=== PATIENT | female | born 2000 ===

== ENCOUNTER 2021-03-14 12:50 | Outpatient (REF) | payer MEDICAID, SELFPAY ==
--- NOTE | ~2021-03-14 | US_ITS ---
EXAMINATION: US PELVIS CLINICAL INFORMATION: Excessive and frequent menstruation COMPARISON: None TECHNIQUE: Ultrasound of the pelvis is performed using both transabdominal and transvaginal transducers along with Doppler. Transvaginal imaging is performed due to inadequate visualization transabdominally. The patient couldn't tolerate transvaginal exam. FINDINGS: The uterus is anteverted and measures 6.1 x 2.7 x 3.6 cm in dimension. No focal uterine lesion is seen. Endometrial thickness is normal measuring 0.2 cm. There is a small amount of fluid in the endocervical canal. The ovaries are normal. The right ovary measures 2.4 x 1.3 x 2.2 cm and the left ovary measures 1.5 x 0.8 x 1.3 cm. There is no fluid in the pelvis. US/US pelvic and transvaginal IMPRESSION: Normal pelvic ultrasound.
== END 2021-03-14 12:51 | disposition home or self-care (01) ==
LOC: HO.US 12:50
PROVIDERS: PCP Pediatrics; Visit Provider Pediatrics
DX: N92.1 Excessive and frequent menstruation with irregular cycle (principal)
CPT/HCPCS: 76830; 76856

== ENCOUNTER 2023-01-21 21:25 | Emergency (ER) | payer MEDICAID, SELFPAY ==
--- NOTE | ~2023-01-21 | CT_ITS ---
EXAMINATION: CT ABDOMEN AND PELVIS WITH CONTRAST CLINICAL INFORMATION: Abdominal pain COMPARISON: None available. TECHNIQUE: Multidetector volumetric images were obtained from the superior aspect of the liver through the pubic symphysis following administration 85 mL of Omnipaque 350 intravenous contrast. Sagittal and coronal reformatted images were obtained on the technologist's workstation. Oral contrast: No This CT examination was performed using dose optimization techniques as appropriate, variously including the following: *Automated exposure control *Adjustment of mA and/or kV according to patient size (this includes techniques or standardized protocols for targeted exams where dose is matched to indication/reason for exam; i.e. extremities or head) *Use of iterative reconstruction technique DLP: 198 mGy-cm FINDINGS: Motion slightly limits evaluation. LUNG BASES: The visualized lung bases are unremarkable. LIVER, GALLBLADDER, AND BILIARY TREE: The liver is normal in size, shape, and attenuation. No focal hepatic lesion or biliary ductal dilatation is present. The gallbladder is unremarkable with no evidence of radiopaque gallstones, gallbladder wall thickening, or obvious pericholecystic inflammatory changes. PANCREAS: Unremarkable. SPLEEN: Unremarkable. ADRENAL GLANDS: Unremarkable. KIDNEYS AND URETERS: The kidneys are normal in size, shape, and attenuation. No hydronephrosis, hydroureter, or calculi seen. No perinephric stranding. BLADDER: Unremarkable. GASTROINTESTINAL TRACT: The appendix is not confidently seen. There is retained rectal stool with mild rectal distention up to 4.3 cm. ABDOMINAL WALL: No significant hernia is appreciated. LYMPH NODES: Normal. VASCULAR: Unremarkable. PELVIC VISCERA: Unremarkable. OSSEOUS STRUCTURES: Unremarkable. CT/CT abdomen pelvis w IV con IMPRESSION: Motion slightly limits evaluation. Retained rectal stool with mild rectal expansion. No other significant abnormality seen. Fleischner guidelines were followed.
[2023-01-21 21:28] VITALS: BP 121/70; PULSE 105; RESP 18; TEMP 36.7; O2SAT 98; BMI 17.3
[2023-01-21 21:41] LABS: MANUAL DIFF FLAG NO
[2023-01-21 21:43] LABS: Basophils Percent Auto 0.3 % (0-2); Hemoglobin 14.6 g/dl (12.0-16.0); Imm Gran Abs Auto 0.02 X10*3/uL (0.00-0.03); Imm Gran Pct Auto 0.2 % (0.0-0.4); Lymphocytes Absolute Auto 1.1 X10*3/uL (1.2-4.9); Lymphocytes Percent Auto 10.9 % (20-40); Mean Corpuscular Hemoglobin 28.2 pg (27.0-33.0); Mean Corpuscular Volume 83.2 fL (80.0-98.0); Monocytes Absolute Auto 0.4 X10*3/uL (0.1-1.2); Monocytes Percent Auto 3.8 % (2-11); Neutrophils Absolute Auto 8.3 x10*3/uL (2.0-8.3); Neutrophils Percent Auto 84.8 % (45-73); Platelet Count 251 X10*3/uL (160-400); Red Blood Count 5.17 X10*6/uL (4.20-5.50); White Blood Count 9.8 X10*3/uL (4.8-10.8)
[2023-01-21 21:56] LABS: Alanine Aminotransferase 9 U/L (0-31); Albumin Level 4.7 g/dL (3.5-5.0); Alkaline Phosphatase 58 U/L (39-117); Anion Gap 17 (12-20); Aspartate Amino Transferase 14 U/L (5-31); Blood Urea Nitrogen 10 mg/dL (9-16); Calcium 10.3 mg/dL (8.4-10.2); Carbon Dioxide 21 mmol/L (22-29); Chloride 108 mmol/L (96-108); Creatinine Clr Calc Pharmacy 71.1; Estimated Glomerular Filt Rate > 60; Glucose Random 115 mg/dL (60-115); Potassium 3.8 mmol/L (3.3-5.1); Sodium 142 mmol/L (135-145); Total Protein 8.1 g/dL (6.5-8.0)
[2023-01-21 23:18] VITALS: BP 97/61; PULSE 88; RESP 18; TEMP 37; O2SAT 98
--- NOTE | 2023-01-21 23:32 | ED.NAVMDI ---
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 The patient then developed upper abdominal pain after vomiting so much. No diarrhea, fevers, no sick contacts, food exposures. This is unusual for her. Denies urinary symptoms MD elicited complaint: nausea, vomiting and abdominal pain Onset (ago): hour(s) (since last night) Description of vomiting: food contents and watery Associated nausea: Yes Location of pain: epigastric Pain consistency: intermittent Severity: mild Quality: cramping and aching Exacerbating factors: eating Relieving factors: none Associated symptoms: loss of appetite, malaise and nausea/vomiting Treatment prior to arrival: other OTC medicine Related Data Previous Rx's Medication Instructions Recorded bisacodyl 10 mg rectal suppository 10 mg OR DAILY PRN constipation 01/22/23 #12 ea ondansetron 4 mg disintegrating 4 mg PO Q8H PRN nausea and 01/22/23 tablet vomiting #20 tabs sennosides 8.6 mg tablet (senna) 8.6 mg PO BEDTIME PRN constipation 01/22/23 #30 tabs Allergies Allergy/AdvReac Type Severity Reaction Status Date / Time No Known Allergies Allergy Unverified 01/27/20 19:17 [No Known Allergies*] Review of Systems Review of Systems: Constitutional : No Weight loss, No Fever, No Chills ENT/Mouth : No sore throat, No Rhinorrhea Eyes: No Swelling, No Redness Cardiovascular : No Chest Pain, No SOB, NoEdema Respiratory : No Cough, No Sputum, No Wheezing Gastrointestinal : Positive Nausea, Positive Vomiting, no Diarrhea, positive abdominal Pain, No Hematochezia, No Melena Genitourinary : No Dysuria, No Urinary Frequency, No Hematuria, No Urgency Musculoskeletal : No joint pain, No Myalgias, No Joint Swelling Skin : No Skin Lesions, No rash Neuro : No Weakness, No Numbness, No Dizziness, No Headache Psych : No Anxiety/Panic, No Depression Heme/Lymph: No Bruising, No Lymphadenopathy Endocrine : No Polyuria, No Polydipsia All other systems reviewed and are negative. Gastrointestinal: Gastrointestinal: Reports nausea PMFSH Past Medical History Attestation statement: The following information was validated with the patient. Source: obtained from family Medical History Cerebellar ataxia Social History Social History (Updated 01/21/23 @ 23:36 by Sadaf Marc DO) Alcohol intake: never Patient Tobacco Use Status: Never used Tobacco Smoked in Last 30 Days: No Use of substances other than those prescribed or required for medical reasons: No Advance Directives: No Advance Directives Information Provided: Yes Patient : No Physical Exam Vital Signs: Vital Signs: Last Vital Signs Temp 98.6 F 01/21/23 23:18 Pulse 88 01/21/23 23:18 Resp 18 01/21/23 23:18 BP 97/61 01/21/23 23:18 Pulse Ox 98 01/21/23 23:18 O2 Del Method Room Air 01/21/23 23:18 BMI result Body Mass Index 17.3 Appearance: Alert. Oriented X3. No acute distress. Eyes: Pupils equal, round and reactive to light. ENT: Pharynx midly dry MM Neck: Normal inspection. Neck supple. CVS: Normal heart rate and rhythm. Pulses normal. Respiratory: No respiratory distress. Breath sounds normal. Abdomen: Soft and mild epigastric ttp no rebound or guarding Skin: Skin warm and dry. Normal skin color. Normal skin turgor. Extremities: No lower extremity edema. No calf ttp Neuro: Oriented X 3. at baseline. Rolling movements of head WC bound Course Course Course Narrative: repeat IVF still having pain will obtain CT scan Reevaluation(s) Reevaluation #1: does not want disimpaction - wants to go home with enema and suppositories Medications Administered Discontinued Medications Generic Name Dose Route Start Last Admin Trade Name Freq PRN Reason Stop Dose Admin Acetaminophen 325 mg 01/22/23 01:39 01/22/23 01:49 Acetaminophen Oral Liquid 650 Mg/20.3 Ml Solution PO 01/22/23 01:40 325 mg ONCE ONE Administration Famotidine 20 mg 01/21/23 23:27 01/21/23 23:39 Famotidine/Pf 20 Mg/2 Ml Vial IVPUSH 01/21/23 23:28 20 mg ONCE ONE Administration Sodium Chloride 1,000 mls @ 999 mls/hr 01/21/23 23:30 01/22/23 00:43 Ns IV 01/22/23 00:30 Infused .Q1H1M MICHA Infusion Sodium Chloride 500 mls @ 500 mls/hr 01/22/23 01:45 01/22/23 01:51 Ns IV 01/22/23 02:44 500 mls/hr .Q1H MICHA Administration Iohexol 85 ml 01/22/23 02:25 01/22/23 02:26 Iohexol 350 Mg/Ml 100 Ml Infus..Btl IV 01/22/23 02:26 85 ml ONCE ONE Administration Ketorolac Tromethamine 15 mg 01/21/23 23:27 01/21/23 23:38 Ketorolac Tromethamine 15 Mg/Ml Vial IVPUSH 01/21/23 23:28 15 mg ONCE ONE Administration Ondansetron HCl 4 mg 01/21/23 23:27 01/21/23 23:38 Ondansetron Hcl 4 Mg/2 Ml Vial IVPUSH 01/21/23 23:28 4 mg ONCE ONE Administration Medical Decision Making Medical Decision Making MDM Narrative: 22 yo female with hx of cerebellar ataxia uses walker and WC no prior abdominal surgery here with c/o n/v starting last night then developing upper abdominal pain - no risk factors or exposures no other symptoms. Had negative COVID test at home. At this time will obtain basic labs, UA/UPT and IVF supportive medications. She has no localizing pain in RUQ or RLQ to suggest cholecystitis or appendicitis. Differential Diagnosis Differential Diagnoses: The differential diagnosis associated with the presentation includes gastritis, viral syndrome, UTI, food toxicity Admission/Observation Consideration of admission/observation: Escalation of care including admission/observation considered feels better tolerating PO stable for DC Lab Data [facility] Lab Attestation statement: I reviewed the patient's lab results. 01/21/23 21:37 01/21/23 21:37 Labs: Lab Results 01/21/23 01/21/23 01/22/23 Range/Units 21:37 23:53 01:24 WBC 9.8 (4.8-10.8) X10*3/uL RBC 5.17 (4.20-5.50) X10*6/uL Hgb 14.6 (12.0-16.0) g/dl Hct 43.0 (37.0-47.0) % MCV 83.2 (80.0-98.0) fL MCH 28.2 (27.0-33.0) pg MCHC 34.0 (31.0-35.0) g/dl RDW 12.0 (11.0-16.0) % Plt Count 251 (160-400) X10*3/uL MPV 11.0 (9.4-12.3) fL Immature Gran % (Auto) 0.2 (0.0-0.4) % Neut % (Auto) 84.8 H (45-73) % Lymph % (Auto) 10.9 L (20-40) % [place] % (Auto) 3.8 (2-11) % Eos % (Auto) 0.0 (0-4) % Baso % (Auto) 0.3 (0-2) % Lymph # (Auto) 1.1 L (1.2-4.9) X10*3/uL [place] # (Auto) 0.4 (0.1-1.2) X10*3/uL Eos # (Auto) 0.0 (0.0-0.4) X10*3/uL Baso # (Auto) 0.0 (0.0-0.2) X10*3/uL Abs Immat Gran (auto) 0.02 (0.00-0.03) X10*3/uL Absolute Neuts (auto) 8.3 (2.0-8.3) x10*3/uL Absolute Nucleated RBC 0.000 (0.0-0.012) X10*3/uL Nucleated RBC % (auto) 0.0 (0.0-0.2) /100WBC Sodium 142 (135-145) mmol/L Potassium 3.8 (3.3-5.1) mmol/L Chloride 108 (96-108) mmol/L Carbon Dioxide 21 L (22-29) mmol/L Anion Gap 17 (12-20) BUN 10 (9-16) mg/dL Creatinine 0.71 (0.5-1.4) mg/dL Estim Creat Clear Calc 71.1 Estimated GFR > 60 Random Glucose 115 (60-115) mg/dL Calcium 10.3 H (8.4-10.2) mg/dL Total Bilirubin 1.0 (0.0-1.0) mg/dL AST 14 (5-31) U/L ALT 9 (0-31) U/L Alkaline Phosphatase 58 (39-117) U/L Total Protein 8.1 H (6.5-8.0) g/dL Albumin 4.7 (3.5-5.0) g/dL Lipase 22 (8-78) U/L Urine Color Dark Yellow Urine Appearance Clear Urine pH 5.5 (5.0-9.0) Ur Specific [place] >= 1.030 H (1.005-1.025) Urine Protein 30 (1+) H (Neg-Trace) mg/dL Urine Glucose (UA) Negative (Negative) mg/dL Urine Ketones 80 (Negative) mg/dL Urine Blood Negative (Negative) Urine Nitrite Negative (Negative) Ur Leukocyte Esterase Trace H (Negative) Urine RBC 3-5 H (0-2) /HPF Urine WBC 6-10 H (0-5) /HPF Ur Squamous Epith Cells 6-10 (0-2) /HPF Urine Bacteria Trace (None Seen) Hyaline Casts 0-2 (0-2) /LPF Urine Test NEGATIVE (NEGATIVE) COVID-19 (CROW) Negative (Negative) COVID-19 Clin Com See Note Independent Interpretation I performed an independent interpretation of an: CT Scan (no appendicitis) Radiology Impression Discussion of test interpretation with radiology: I have reviewed the radiologist's reading. Independent Historian Clinical information obtained from an independent historian. History obtained from or confirmed by: Parent Tests considered The following testing was considered but not selected: CT scan but no localized pain to suggest appendicitis/cholecystitis Prescription Management I considered prescription management with: Other (zofran) Discharge Plan Discharge Clinical Impression: Dehydration Abdominal pain Qualifiers: Abdominal location: epigastric Qualified Code(s): R10.13 - Epigastric pain Patient Disposition: Home, Self-Care Instructions: Dehydration (ED), Acute Nausea and Vomiting (ED), Abdominal Pain (ED) Additional Instructions: return for fevers, vomiting, worsening pain, inability to eat or drink, no bowel movement in 24 hours or any other concerns. Regrese si tiene fiebre, v?mitos, dolor que empeora, incapacidad para comer o beber, falta de evacuaci?n intestinal en 24 horas o cualquier otra inquietud. Prescriptions: New bisacodyl 10 mg suppository 10 mg OR DAILY PRN (Reason: constipation) Qty: 12 0RF ondansetron 4 mg tablet,disintegrating 4 mg PO Q8H PRN (Reason: nausea and vomiting) Qty: 20 0RF sennosides [senna] 8.6 mg tablet 8.6 mg PO BEDTIME PRN (Reason: constipation) Qty: 30 0RF
[2023-01-21] MEDS: Ketorolac Tromethamine 15 MG/ML VIAL IVPUSH (23:38)
[2023-01-21] MEDS: 0.9 % Sodium Chloride 1,000 ML 999 ML IV (23:38)
[2023-01-21] MEDS: ondansetron HCL 4 MG/2 ML VIAL IVPUSH (23:38)
[2023-01-21] MEDS: Famotidine/PF 20 MG/2 ML VIAL IVPUSH (23:39)
[2023-01-21 23:40] LABS: Lipase 22 U/L (8-78)
[2023-01-22 00:14] LABS: COVID-19 Test Negative (Negative); IDNOW Serial# 08D9AD1C
--- NOTE | 2023-01-22 00:17 | PC.NURSE ---
Pt ambulated to bathroom with two assist. She was unable to void at this time, UA sample is delayed.
[2023-01-22 01:31] LABS: Appearance Urine Clear; Color Urine Dark Yellow; Glucose Urine UA Negative (Negative); Leukocyte Esterase Urine Trace (Negative); Nitrite Urine Negative (Negative); PH 5.5 (5.0-9.0); Specific Gravity - Urine >= 1.030 (1.005-1.025); UMIC TRIGGER UACC YES; Urine Blood Negative (Negative); Urine Ketones 80 mg/dL (Negative); Urine Protein 30 (1+) mg/dL (Neg-Trace)
[2023-01-22 01:34] LABS: UPreg QC Valid YES; Urine Pregnancy NEGATIVE (NEGATIVE)
[2023-01-22 01:47] LABS: Bacteria Urine Trace (None Seen); Hyaline Casts Urine 0-2 /LPF (0-2); UACC Culture Trigger YES
[2023-01-22] MEDS: Acetaminophen Oral Liquid 650 MG/20.3 ML SOLUTION 325 MG PO (01:49)
[2023-01-22] MEDS: 0.9 % Sodium Chloride 500 ML IV (01:51)
[2023-01-22] MEDS: iohexoL 350 MG/ML 100 ML INFUS..BTL 85 ML IV (02:26)
== END 2023-01-22 04:29 | disposition home or self-care (01) ==
PROVIDERS: Emergency Provider Emergency Medicine; PCP Internal Medicine
DX: E86.0 Dehydration (principal); R10.13 Epigastric pain; R11.2 Nausea with vomiting, unspecified; R19.7 Diarrhea, unspecified; Z20.822 Contact with and (suspected) exposure to COVID-19; Z20.828 Contact with and (suspected) exposure to other viral communicable diseases; Z79.899 Other long term (current) drug therapy
CPT/HCPCS: 36415; 74177; 80053; 81001; 81025; 83690; 85025; 87086; 87635; 96361; 96374; 96375; 99285; J1885; J2405; Q9967

== ENCOUNTER 2023-02-23 11:00 | Outpatient (REF) | payer MEDICAID, SELFPAY | END 2023-02-23 11:01 | disposition home or self-care (01) | LOC: HO.HHCLNP 11:00 | PROVIDERS: Visit Provider Internal Medicine | DX: R10.13 Epigastric pain (principal) | CPT/HCPCS: 87338 ==

== ENCOUNTER 2023-02-25 10:38 | Outpatient (REF) | payer MEDICAID, SELFPAY | END 2023-02-25 10:39 | disposition home or self-care (01) | LOC: HO.HHCLNP 10:38 | PROVIDERS: Visit Provider Internal Medicine | DX: Z13.89 Encounter for screening for other disorder (principal) ==

== ENCOUNTER 2023-02-28 13:31 | Outpatient (REF) | payer MEDICAID, SELFPAY ==
[2023-02-28 16:54] LABS: HCG Quantitative < 2 mIU/mL
== END 2023-02-28 13:32 | disposition home or self-care (01) ==
LOC: HO.HHCL 13:31
PROVIDERS: Visit Provider Internal Medicine
DX: Z30.42 Encounter for surveillance of injectable contraceptive (principal)
CPT/HCPCS: 36415; 84702

== ENCOUNTER 2023-03-12 12:25 | Outpatient (REF) | payer MEDICAID, SELFPAY ==
[2023-03-12 13:24] LABS: HCG Quantitative < 2 mIU/mL
== END 2023-03-12 12:26 | disposition home or self-care (01) ==
LOC: HO.LAB 12:25
PROVIDERS: PCP Internal Medicine; Visit Provider Internal Medicine
DX: Z30.42 Encounter for surveillance of injectable contraceptive (principal)
CPT/HCPCS: 36415; 84702

== ENCOUNTER 2023-05-13 15:02 | Outpatient (REF) | payer MEDICAID, SELFPAY | END 2023-05-13 15:03 | disposition home or self-care (01) | LOC: HO.LNP 15:02 | PROVIDERS: PCP Internal Medicine; Visit Provider Nurse Practitioner Family | DX: R10.13 Epigastric pain (principal); K21.9 Gastro-esophageal reflux disease without esophagitis; K58.2 Mixed irritable bowel syndrome; R10.32 Left lower quadrant pain; R14.0 Abdominal distension (gaseous); Z11.0 Encounter for screening for intestinal infectious diseases | CPT/HCPCS: 83013; 99212 ==

== ENCOUNTER 2023-05-13 15:02 | Outpatient (AMB) | payer MEDICAID, SELFPAY ==
--- NOTE | 2023-05-13 15:03 | A.OFFVIS_ITS ---
Intake Vital Signs 05/13/23 15:08 Height 4 ft 9 in Weight 90 lb BMI 19.5 BP 102/59 L Blood Pressure Location Lt brachial Position Sitting Pulse 85 Intake Visit Reasons: Epigastric pain and vomiting Intake Note: Kelsi presents in the office as a new patient for epigastric pains and vomiting. CC: She states that her stomach has been sick. They thought it was a virus but it lasted for weeks. She gets that sometimes she has constipation and a little diarrhea. Computer Artist Required: No Allergies Seasonal Allergies Allergy (Mild, Verified 05/13/23 15:08) Unknown HPI Epigastric pain and vomiting HPI Details 23-year-old female with past medical his tory of cerebellar ataxia is here accompanied by her mother. Patient was seen in the ER back in January for epigastric discomfort, nausea and abdominal pain. Patient had CT scan that was essentially negative. Patient had no leukocytosis, chemistry was also normal. Patient developed symptoms after drinking cereal with milk. Patient reports that she gets postprandial loose stools and then have constipation for few days. Patient denies any melena, hematochezia, unintentional weight loss or ribbon like stools. Patient reports dyspepsia without dysphagia or odynophagia. Patient reports that occasionally she will wake up feeling nauseous. Sometimes epigastric pain randomly. PCP send patient for stool for H pylori that was negative. We will repeat breath test today. Patient has been on baclofen which possibly have affect on her being more constipated. Patient took Senokot for few days then was given script for Dulcolax tablets. Patient believes that it was not really helpful. [facility] Medical History Cerebellar ataxia Social History Alcohol intake: never Patient Tobacco Use Status: Never used Tobacco Review of Systems Const Reports weight loss ENT Reports no additional complaints, Denies dysphagia and Denies odynophagia Card Reports no additional complaints Resp Reports no additional complaints GI Reports abdominal pain (LLQ), Denies belching, Denies melena, Reports bloating, Reports constipation, Denies dysphagia, Denies excessive flatus, Reports dyspepsia, Reports heartburn, Denies diarrhea, Reports loose stools, Reports nausea, Denies odynophagia and Denies vomiting Reports no additional complaints Musc Reports no additional complaints Neuro Reports no additional complaints Psych Reports no additional complaints Endo Reports no additional complaints Physical Exam Vital Signs: Last Vital Signs Pulse 85 05/13/23 15:08 BP 102/59 L 05/13/23 15:08 BMI result Body Mass Index 19.5 Const General: healthy appearing, no acute distress and well developed Nutritional Appearance: well nourished Orientation/consciousness: patient oriented x3 Resp Effort & Inspection: normal respiratory effort, able to speak in complete sentences, no tracheal deviation and symmetric chest movement Auscultation: clear to auscultation bilaterally Cardio Rate: regular rate GI Inspection: Yes normal to inspection and No distended Palpation (GI): Soft to palpation, not firm, nontender and No hepatosplenomegaly present Auscultation: normal bowel sounds General: Yes no CVA tenderness Back/Spine/Pelvis Back: no CVA tenderness Skin General skin exam: elasticity normal, turgor normal and dry skin Neuro Other: Mild tremors due to cerebellar ataxia General: patient oriented x3 Psych Appearance: grossly normal Mental Status: mental status grossly normal Results Reviewed Results Reviewed: CT SCAN OF ABDOMEN AND PELVIS 01/2023 (ED VISIT) FINDINGS: Motion slightly limits evaluation. LUNG BASES: The visualized lung bases are unremarkable. LIVER, GALLBLADDER, AND BILIARY TREE: The liver is normal in size, shape, and attenuation. No focal hepatic lesion or biliary ductal dilatation is present. The gallbladder is unremarkable with no evidence of radiopaque gallstones, gallbladder wall thickening, or obvious pericholecystic inflammatory changes. PANCREAS: Unremarkable. SPLEEN: Unremarkable. ADRENAL GLANDS: Unremarkable. KIDNEYS AND URETERS: The kidneys are normal in size, shape, and attenuation. No hydronephrosis, hydroureter, or calculi seen. No perinephric stranding. BLADDER: Unremarkable. GASTROINTESTINAL TRACT: The appendix is not confidently seen. There is retained rectal stool with mild rectal distention up to 4.3 cm. ABDOMINAL WALL: No significant hernia is appreciated. LYMPH NODES: Normal. VASCULAR: Unremarkable. PELVIC VISCERA: Unremarkable. OSSEOUS STRUCTURES: Unremarkable. CT/CT abdomen pelvis w IV con IMPRESSION: Motion slightly limits evaluation. Retained rectal stool with mild rectal expansion. Assessment & Plan Assessment & Plan (1) GERD (gastroesophageal reflux disease): Code(s): K21.9 - Gastro-esophageal reflux disease without esophagitis Qualifiers: Esophagitis presence: esophagitis presence not specified Qualified Code(s): K21.9 - Gastro-esophageal reflux disease without esophagitis (2) IBS (irritable bowel syndrome): Code(s): K58.9 - Irritable bowel syndrome without diarrhea Qualifiers: Irritable bowel syndrome type: with both diarrhea and constipation Qualified Code(s): K58.2 - Mixed irritable bowel syndrome (3) LLQ abdominal pain: Code(s): R10.32 - Left lower quadrant pain (4) Postprandial abdominal bloating: Code(s): R14.0 - Abdominal distension (gaseous) (5) Postprandial epigastric pain: Code(s): R10.13 - Epigastric pain Plan Patient will start taking MiraLax daily. Discussed with patient avoiding dietary triggers. Patient will increase fluid intake and activity to promote better bowel motility. Patient can take famotidine twice a day for now. Will check in the office for H pylori and treat empirically if positive. Patient will return to the office in 5 weeks, sooner on as needed basis. Patient is agreeable to this plan and verbalizes understanding of instructions. She was given the opportunity to ask questions and all questions answered. Thank you for allowing me to participate in her care Orders: Orders H Pylori Breath Test 05/15/23 Medications: New polyethylene glycol 3350 (Miralax) 17 grams PO DAILY 510 grams 2RF Discontinued sennosides Discontinued Reason: Patient no longer taking 8.6 mg PO BEDTIME PRN 30 tabs 0RF constipation bisacodyl Discontinued Reason: Patient Completed Course [address] DAILY PRN 12 ea 0RF constipation ondansetron Discontinued Reason: Patient Completed Course 4 mg PO Q8H PRN 20 tabs 0RF nausea and vomiting Coding Level of Care Code New Pt Level 4 (97889) Diagnoses Gastroesophageal reflux disease, unspecified whether esophagitis present K21.9 Esophagitis presence: esophagitis presence not specified Irritable bowel syndrome with both constipation and diarrhea K58.2 Irritable bowel syndrome type: with both diarrhea and constipation LLQ abdominal pain R10.32 Postprandial abdominal bloating R14.0 Postprandial epigastric pain R10.13 Time Spent (min) 45 Comment 30 minutes spent with patient and additional 15 minutes spent reviewing her records
[2023-05-13 15:08] VITALS: BP 102/59; PULSE 85; BMI 19.5
== END 2023-05-13 16:09 | disposition home or self-care (01) ==
PROVIDERS: PCP Internal Medicine; Visit Provider Nurse Practitioner Family
DX: K21.9 Gastro-esophageal reflux disease without esophagitis (principal); K58.2 Mixed irritable bowel syndrome; R10.32 Left lower quadrant pain; R14.0 Abdominal distension (gaseous); R10.13 Epigastric pain
CPT/HCPCS: 99204

== ENCOUNTER 2023-06-03 09:14 | Outpatient (REF) | payer MEDICAID, SELFPAY ==
[2023-06-04 21:23] LABS: HCG Tumor Marker <5 mIU/mL
== END 2023-06-03 09:15 | disposition home or self-care (01) ==
LOC: HO.LAB 09:14
PROVIDERS: PCP Internal Medicine; Visit Provider Internal Medicine
DX: Z30.42 Encounter for surveillance of injectable contraceptive (principal)
CPT/HCPCS: 36415; 84702

== ENCOUNTER 2023-06-17 15:18 | Outpatient (AMB) | payer MEDICAID, SELFPAY ==
[2023-06-17 15:32] VITALS: BP 122/62; PULSE 87; BMI 19.3
--- NOTE | 2023-06-17 15:32 | MHC.OFFVIS ---
Intake Vital Signs 06/17/23 15:32 Height 4 ft 9 in Weight 89 lb 1.068 oz BMI 19.3 BP 122/62 Blood Pressure Location Rt brachial Position Sitting Pulse 87 Intake Visit Reasons: 5 week follow up Intake Note: Kelsi presents in the office in follow up of epigastric pains and vomiting. CC: She reports that she has been taking the Miralax and it has been helping. Denies other GI symptoms. Radiological Technician Required: No Accompanied by: Aunt Allergies Seasonal Allergies Allergy (Mild, Verified 06/17/23 15:40) Unknown No Known Drug Allergies Allergy (Unknown, Verified 06/17/23 15:40) none HPI 5 week follow up HPI Details LASTY VISIT: GERD (gastroesophageal reflux disease) IBS (irritable bowel syndrome) LLQ abdominal pain Postprandial abdominal bloating Postprandial epigastric pain Plan Patient will start taking MiraLax daily. Discussed with patient avoiding dietary triggers. Patient will increase fluid intake and activity to promote better bowel motility. Patient can take famotidine twice a day for now. Will check in the office for H pylori and treat empirically if positive. Patient will return to the office in 5 weeks, sooner on as needed basis. Patient is agreeable to this plan and verbalizes understanding of instructions. She was given the opportunity to ask questions and all questions answered. ? Thank you for allowing me to participate in her care Orders Orders H Pylori Breath Test 05/15/23 Medications New polyethylene glycol 3350 (Miralax) 17 grams PO DAILY 510 grams 2RF Discontinued sennosides Discontinued Reason: Patient no longer taking 8.6 mg PO BEDTIME PRN 30 tabs 0RF constipation bisacodyl Discontinued Reason: Patient Completed Course 10 mg ND DAILY PRN 12 ea 0RF constipation ondansetron Discontinued Reason: Patient Completed Course 4 mg PO Q8H PRN 20 tabs 0RF nausea and vomiting TODAY'S VISIT Patient is here today for follow-up. Patient is accompanied by her on. Patient reports that she has been feeling much better. Changed her diet, avoiding lactose and some of the gluten. Patient is drinking more fluids and eating more vegetables. Following low FODMAP diet as much as possible. She is using the MiraLax and states that her symptoms of abdominal bloating and constipation got much better. Patient is no longer nauseous. Not taking famotidine. No epigastric discomfort, no dyspepsia, dysphagia or odynophagia. [facility] Medical History Cerebellar ataxia Social History (Updated 06/17/23 @ 15:40 by KASHIF Gonzalez) Alcohol intake: never Patient Tobacco Use Status: Never used Tobacco Review of Systems Const Denies weight gain and Denies weight loss ENT Reports no additional complaints, Denies dysphagia and Denies odynophagia Card Reports no additional complaints Resp Reports no additional complaints GI Denies abdominal pain, Denies belching, Denies melena, Denies bloating, Denies change in bowel habits, Denies dysphagia, Denies excessive flatus, Denies dyspepsia, Denies heartburn, Denies diarrhea, Denies loose stools, Denies nausea, Denies odynophagia and Denies vomiting Musc Reports no additional complaints Neuro Reports no additional complaints Psych Reports no additional complaints Endo Reports no additional complaints Physical Exam Vital Signs: Last Vital Signs Pulse 87 06/17/23 15:32 BP 122/62 06/17/23 15:32 BMI result Body Mass Index 19.3 Const General: healthy appearing, no acute distress and well developed Nutritional Appearance: well nourished Orientation/consciousness: patient oriented x3 Resp Effort & Inspection: normal respiratory effort, able to speak in complete sentences, no tracheal deviation and symmetric chest movement Auscultation: clear to auscultation bilaterally Cardio Rate: regular rate GI Inspection: Yes normal to inspection and No distended Palpation (GI): Soft to palpation, not firm, nontender and No hepatosplenomegaly present Auscultation: normal bowel sounds General: Yes no CVA tenderness Back/Spine/Pelvis Back: no CVA tenderness Skin General skin exam: elasticity normal, turgor normal and dry skin Neuro Other: Mild tremors due to cerebellar ataxia General: patient oriented x3 Psych Appearance: grossly normal Mental Status: mental status grossly normal Assessment & Plan Assessment & Plan (1) GERD (gastroesophageal reflux disease): Code(s): K21.9 - Gastro-esophageal reflux disease without esophagitis Qualifiers: Esophagitis presence: esophagitis presence not specified Qualified Code(s): K21.9 - Gastro-esophageal reflux disease without esophagitis (2) IBS (irritable bowel syndrome): Code(s): K58.9 - Irritable bowel syndrome without diarrhea Qualifiers: Irritable bowel syndrome type: without diarrhea Qualified Code(s): K58.9 - Irritable bowel syndrome without diarrhea (3) Postprandial epigastric pain: Code(s): R10.13 - Epigastric pain Plan Patient will continue taking MiraLax. Patient is not taking any PPI or H2 colin at this time. Reports to have no epigastric pain, dyspepsia. Patient will return in the office in 6 months, sooner on as needed basis. Patient is agreeable to this plan and verbalizes understanding of instructions. She was given the opportunity to ask questions and all questions answered. Thank you for allowing me to participate in her care Medications: Refilled polyethylene glycol 3350 (Miralax) 17 grams PO DAILY 510 grams 2RF Coding Level of Care Code Est Pt Level 3 (83516) Diagnoses Gastroesophageal reflux disease, unspecified whether esophagitis present K21.9 Esophagitis presence: esophagitis presence not specified Irritable bowel syndrome without diarrhea K58.9 Irritable bowel syndrome type: without diarrhea Postprandial epigastric pain R10.13 Time Spent (min) 25 Comment 15 minutes spent with patient and additional 10 minutes spent reviewing her records
== END 2023-06-17 15:52 | disposition home or self-care (01) ==
PROVIDERS: PCP Internal Medicine; Visit Provider Nurse Practitioner Family
DX: K21.9 Gastro-esophageal reflux disease without esophagitis (principal); K58.9 Irritable bowel syndrome, unspecified; R10.13 Epigastric pain
CPT/HCPCS: 99213

== ENCOUNTER → 2023-06-17 15:18 | Outpatient (BNVA) | payer MEDICAID, SELFPAY | PROVIDERS: PCP Internal Medicine; Visit Provider Nurse Practitioner Family | DX: K21.9 Gastro-esophageal reflux disease without esophagitis (principal); K58.9 Irritable bowel syndrome, unspecified; R10.13 Epigastric pain | CPT/HCPCS: 99212 ==

== ENCOUNTER 2023-07-29 14:00 | Outpatient (RCR) | payer MEDICAID, SELFPAY | END 2023-09-29 07:38 | disposition home or self-care (01) | LOC: HO.PT 14:00 | PROVIDERS: PCP Internal Medicine; Visit Provider Psychiatry & Neurology Neurology | DX: G24.1 Genetic torsion dystonia (principal) | CPT/HCPCS: 97110; 97140; 97162; 97535 ==

== ENCOUNTER 2023-08-20 10:27 | Outpatient (REF) | payer MEDICAID, SELFPAY ==
[2023-08-21 07:28] LABS: HCG Tumor Marker <5 mIU/mL
== END 2023-08-20 10:28 | disposition home or self-care (01) ==
LOC: HO.LAB 10:27
PROVIDERS: PCP Internal Medicine; Visit Provider Internal Medicine
DX: Z30.42 Encounter for surveillance of injectable contraceptive (principal)
CPT/HCPCS: 36415; 84702

== ENCOUNTER 2023-08-26 13:59 | Outpatient (REF) | payer MEDICAID, SELFPAY ==
[2023-08-26 16:24] LABS: HCG Quantitative < 2 mIU/mL
== END 2023-08-26 14:00 | disposition home or self-care (01) ==
LOC: HO.LAB 13:59
PROVIDERS: PCP Internal Medicine; Visit Provider Internal Medicine
DX: Z30.42 Encounter for surveillance of injectable contraceptive (principal)
CPT/HCPCS: 36415; 84702

== ENCOUNTER 2023-09-04 10:46 | Outpatient (REF) | payer MEDICAID, SELFPAY ==
[2023-09-04 12:13] LABS: HCG Quantitative < 2 mIU/mL
== END 2023-09-04 10:47 | disposition home or self-care (01) ==
LOC: HO.HHCL 10:46
PROVIDERS: Visit Provider Internal Medicine
DX: Z30.42 Encounter for surveillance of injectable contraceptive (principal)
CPT/HCPCS: 36415; 84702

== ENCOUNTER 2023-09-08 12:59 | Outpatient (REF) | payer MEDICAID, SELFPAY ==
[2023-09-08 16:23] LABS: Appearance Urine Clear; Color Urine Yellow; Glucose Urine UA Negative (Negative); Leukocyte Esterase Urine Negative (Negative); Nitrite Urine Negative (Negative); PH 8.5 (5.0-9.0); Specific Gravity - Urine 1.015 (1.005-1.025); Urine Blood Negative (Negative); Urine Ketones Negative (Negative); Urine Protein Negative (Neg-Trace)
[2023-09-08 16:48] LABS: Bacteria Urine None Seen (None Seen); Hyaline Casts Urine 0-2 /LPF (0-2); RBC Urine 0-2 /HPF (0-2); Squamous Epithelial Cell Urine 0-2 /HPF (0-2); WBC Urine 0-5 /HPF (0-5)
== END 2023-09-08 13:00 | disposition home or self-care (01) ==
LOC: HO.HHCL 12:59
PROVIDERS: Visit Provider Internal Medicine
DX: R35.0 Frequency of micturition (principal)
CPT/HCPCS: 81001

== ENCOUNTER 2023-11-18 09:54 | Outpatient (REF) | payer MEDICAID, SELFPAY ==
[2023-11-18 11:35] LABS: Cholesterol 128 mg/dL (<200); HDL Cholesterol 42 mg/dL (>40); LDL Cholesterol Calculated 77 mg/dL (<100); Triglycerides 49 mg/dL (<150); Vitamin D 25-OH Total 30.8 ng/mL (>30)
[2023-11-18 11:52] LABS: Reflex LDLD? No
[2023-11-18 13:00] LABS: HCG Quantitative < 2 mIU/mL
[2023-11-18 13:08] LABS: HBS Num1 0.69 mIU/mL (0-7.99); HBc Num1 0.18 S/CO (0.00-0.79); HBsAGNum1 0.32 S/CO (0.00-0.99); Hepatitis A Antibody IgM 0.19 Index (0-0.79); Hepatitis B Core Antibody Nonreactive (Nonreactive); Hepatitis B Surface Antigen Negative (Negative); ~HepC Num1 0.19 S/CO (0.00-0.79); ~Hepatitis A Antibody IgM Nonreactive (Nonreactive); ~Hepatitis B Surface Antibody NONREACTIVE (Nonreactive); ~Hepatitis C Antibody Nonreactive (Nonreactive)
[2023-11-20 22:28] LABS: TS Negative Control Passed; TS Panel A 0; TS Panel B 4; TS Positive Control Passed; TSpotTB Negative (Negative)
== END 2023-11-18 09:55 | disposition home or self-care (01) ==
LOC: HO.10HDL 09:54
PROVIDERS: Visit Provider Internal Medicine
DX: Z00.00 Encounter for general adult medical examination without abnormal findings (principal); G11.9 Hereditary ataxia, unspecified; R63.4 Abnormal weight loss
CPT/HCPCS: 36415; 80061; 82306; 84702; 86481; 86704; 86706; 86709; 86735; 86762; 86765; 86803; 87340

== ENCOUNTER 2023-12-16 15:01 | Outpatient (AMB) | payer MEDICAID, SELFPAY ==
--- NOTE | 2023-12-16 15:02 | A.OFFVIS_ITS ---
Vital Signs 12/16/23 15:03 Height 4 ft 9 in Weight 91 lb BMI 19.7 BP 111/58 L Blood Pressure Location Lt brachial Position Sitting Pulse 74 Intake Visit Reasons: 6 month follow up abdominal pain Intake Note: Kelsi presents to in office visit today in follow up of abdominal pain. CC: Patient reports occasional epigastric pain but states they are not as bad as before when she gets them. Denies having any GI concerns today. Financial Supervisor Required: No Allergies Seasonal Allergies Allergy (Mild, Verified 12/16/23 15:06) Unknown No Known Drug Allergies Allergy (Unknown, Verified 12/16/23 15:06) none HPI HPI 6 month follow up abdominal pain: Details: LAST VISIT: GERD (gastroesophageal reflux disease) IBS (irritable bowel syndrome) Postprandial epigastric pain Plan Patient will continue taking MiraLax. Patient is not taking any PPI or H2 colin at this time. Reports to have no epigastric pain, dyspepsia. Patient will return in the office in 6 months, sooner on as needed basis. Patient is agreeable to this plan and verbalizes understanding of instructions. She was g myron the opportunity to ask questions and all questions answered. ? Thank you for allowing me to participate in her care Medications Refilled polyethylene glycol 3350 (Miralax) 17 grams PO DAILY 510 grams 2RF TODAY'S VISIT: Patient is here today for follow-up. Patient reports that she has been doing much better since 1st time was seen in our office. She continues to avoid dietary triggers. Reports that she is moving her bowels well now. Takes MiraLax every morning in her coffee. Denies any melena, hematochezia, unintentional weight loss or ribbon like stools. Patient has more appetite and is eating different variety of food. Patient is eating more fruits and vegetables. Patient is taking supplements like collagen and herbalife. Patient has experienced epigastric pain only couple times after last appointment. [facility] Medical History Cerebellar ataxia Social History Alcohol intake: never Patient Tobacco Use Status: Never used Tobacco Review of Systems Const Denies weight gain and Denies weight loss ENT Reports no additional complaints, Denies dysphagia and Denies odynophagia Card Reports no additional complaints Resp Reports no additional complaints GI Denies abdominal pain, Denies belching, Denies melena, Denies bloating, Denies change in bowel habits, Denies dysphagia, Denies excessive flatus, Denies dyspepsia, Denies heartburn, Denies diarrhea, Denies loose stools, Denies nausea, Denies odynophagia and Denies vomiting Musc Reports no additional complaints Neuro Reports no additional complaints Psych Reports no additional complaints Endo Reports no additional complaints Physical Exam Vital Signs: Last Vital Signs Pulse 74 12/16/23 15:03 BP 111/58 L 12/16/23 15:03 BMI result Body Mass Index 19.7 Const General: healthy appearing, no acute distress and well developed Nutritional Appearance: well nourished Orientation/consciousness: patient oriented x3 Resp Effort & Inspection: normal respiratory effort, able to speak in complete sentences, no tracheal deviation and symmetric chest movement Auscultation: clear to auscultation bilaterally Cardio Rate: regular rate GI Inspection: Yes normal to inspection and No distended Palpation (GI): Soft to palpation, not firm, nontender and No hepatosplenomegaly present Auscultation: normal bowel sounds General: Yes no CVA tenderness Back/Spine/Pelvis Back: no CVA tenderness Skin General skin exam: elasticity normal, turgor normal and dry skin Neuro Other: Mild tremors due to cerebellar ataxia General: patient oriented x3 Psych Appearance: grossly normal Mental Status: mental status grossly normal Assessment & Plan Assessment & Plan (1) GERD (gastroesophageal reflux disease): Code(s): K21.9 - Gastro-esophageal reflux disease without esophagitis Qualifiers: Esophagitis presence: esophagitis presence not specified Qualified Code(s): K21.9 - Gastro-esophageal reflux disease without esophagitis (2) IBS (irritable bowel syndrome): Code(s): K58.9 - Irritable bowel syndrome without diarrhea Qualifiers: Irritable bowel syndrome type: without diarrhea Qualified Code(s): K58.9 - Irritable bowel syndrome without diarrhea (3) Postprandial epigastric pain: Code(s): R10.13 - Epigastric pain Plan Continue avoiding dietary triggers. Avoid late night snacking. Staying upright for minimum 3 hours after meals discussed with patient. Patient will continue MiraLax. Patient will call the office if she will have any GI concerning symptoms. Follow-up in the office in 6 months, sooner on as needed basis. Patient is agreeable to this plan and verbalizes understanding of instructions. She was given the opportunity to questions and all questions answered Thank you for allowing me to participate in her care Coding Level of Care Code Est Pt Level 3 (33143) Diagnoses Gastroesophageal reflux disease, unspecified whether esophagitis present K21.9 Esophagitis presence: esophagitis presence not specified Irritable bowel syndrome without diarrhea K58.9 Irritable bowel syndrome type: without diarrhea Postprandial epigastric pain R10.13 Time Spent (min) 25 Comment 15 minutes spent with patient and additional 10 minutes spent reviewing her records
[2023-12-16 15:03] VITALS: BP 111/58; PULSE 74; BMI 19.7
== END 2023-12-16 15:27 | disposition home or self-care (01) ==
PROVIDERS: PCP Internal Medicine; Visit Provider Nurse Practitioner Family
DX: K21.9 Gastro-esophageal reflux disease without esophagitis (principal); K58.9 Irritable bowel syndrome, unspecified; R10.13 Epigastric pain
CPT/HCPCS: 99213

== ENCOUNTER → 2023-12-16 15:01 | Outpatient (BNVA) | payer MEDICAID, SELFPAY | PROVIDERS: PCP Internal Medicine; Visit Provider Nurse Practitioner Family | DX: K21.9 Gastro-esophageal reflux disease without esophagitis (principal); K58.9 Irritable bowel syndrome, unspecified; R10.9 Unspecified abdominal pain; R10.13 Epigastric pain | CPT/HCPCS: 99212 ==

== ENCOUNTER 2024-03-03 11:04 | Outpatient (AMB) | payer MEDICAID, SELFPAY ==
[2024-03-03 11:09] VITALS: BP 116/56; PULSE 90; O2SAT 100; BMI 19.5
--- NOTE | 2024-03-03 11:09 | MHC.OFFVIS ---
Vital Signs 03/03/24 11:09 Height 4 ft 9 in Weight 90 lb BMI 19.5 BP 116/56 L Blood Pressure Location Rt brachial Position Sitting Pulse 90 Pulse Source Pulse Oximeter Pulse Oximetry (%) 100 Oxygen Delivery Method Room Air Intake Visit Reasons: IBS, Esoghagitis Intake Note: Relevant Flags or Indicators ? Requires Ruby On Rails Developer? Gary Dolan presents in office today for a scheduled 2 mos FUV. CC; Since last visit; labs ordered ? per PCP, done. Rx ordered ? no. Diagnostics/images ordered ? none. Relevant GI Sx as reported per pt? Nausea ? Reflux ? Abdominal Pain o?? Upper B/L ? Early satiety ? Hx of any recent surgeries? None Ruby On Rails Developer Required: Yes Ruby On Rails Developer Services: Ruby On Rails Developer Offered & Declined Ruby On Rails Developer Name: Family Accompanied by: Family/Other Allergies Seasonal Allergies Allergy (Mild, Verified 03/03/24 11:11) Unknown No Known Drug Allergies Allergy (Unknown, Verified 03/03/24 11:11) none HPI HPI IBS, Esoghagitis: Details: LAST VISIT: GERD (gastroesophageal reflux disease) IBS (irritable bowel syndrome) Postprandial epigastric pain Plan Continue avoiding dietary triggers. Avoid late night snacking. Staying upright for minimum 3 hours after meals discussed with patient. Patient will continue MiraLax. Patient will call the office if she will have any GI concerning symptoms. Follow-up in the office in 6 months, sooner on as needed basis. Patient is agreeable to this plan and verbalizes understanding of instructions. She was given the opportunity to questions and all questions answered TODAY'S VISIT Patient is here today for requested visit. Patient reports that for the past week she is having increase epigastric pain and burning. Patient reports that the pain starts in top of her abdomen just below her ribcage and then it feels like heat and cramps. Patient reports that she is moving her bowels well. Currently she is taking Pepcid once or twice a day. Until a week ago she did not have any trouble. Reports that she was doing well. Patient denies any stressful situations. Patient admits to be eating lots of chocolate and sweets. She is reporting that she moves her bowels without any issues. Patient is taking MiraLax on as needed basis. Denies any melena, hematochezia, unintentional weight loss or ribbon like stools. Denies nausea or vomiting. Patient denies any diarrhea ? [facility] Medical History Cerebellar ataxia Social History Alcohol intake: never Patient Tobacco Use Status: Never used Tobacco Review of Systems Const Denies weight gain and Denies weight loss ENT Reports no additional complaints, Denies dysphagia and Denies odynophagia Card Reports no additional complaints Resp Reports no additional complaints GI Reports abdominal pain (epigastric), Denies belching, Denies melena, Reports bloating, Denies change in bowel habits, Denies dysphagia, Denies excessive flatus, Denies dyspepsia, Denies heartburn, Denies diarrhea, Denies loose stools, Denies nausea, Denies odynophagia and Denies vomiting Musc Reports no additional complaints Neuro Reports no additional complaints Psych Reports no additional complaints Endo Reports no additional complaints Physical Exam Vital Signs: Last Vital Signs Pulse 90 03/03/24 11:09 BP 116/56 L 03/03/24 11:09 Pulse Ox 100 03/03/24 11:09 Oxygen Delivery Method Room Air 03/03/24 11:09 BMI result Body Mass Index 19.5 Const General: healthy appearing, no acute distress and well developed Nutritional Appearance: well nourished Orientation/consciousness: patient oriented x3 Resp Effort & Inspection: normal respiratory effort, able to speak in complete sentences, no tracheal deviation and symmetric chest movement Auscultation: clear to auscultation bilaterally Cardio Rate: regular rate GI Inspection: Yes normal to inspection and No distended Palpation (GI): Soft to palpation, not firm, nontender and No hepatosplenomegaly present Auscultation: normal bowel sounds General: Yes no CVA tenderness Back/Spine/Pelvis Back: no CVA tenderness Skin General skin exam: elasticity normal, turgor normal and dry skin Neuro Other: Mild tremors due to cerebellar ataxia General: patient oriented x3 Psych Appearance: grossly normal Mental Status: mental status grossly normal Assessment & Plan Assessment & Plan (1) GERD (gastroesophageal reflux disease): Code(s): K21.9 - Gastro-esophageal reflux disease without esophagitis Qualifiers: Esophagitis presence: esophagitis presence not specified Qualified Code(s): K21.9 - Gastro-esophageal reflux disease without esophagitis (2) IBS (irritable bowel syndrome): Code(s): K58.9 - Irritable bowel syndrome, unspecified Qualifiers: Irritable bowel syndrome type: without diarrhea Qualified Code(s): K58.9 - Irritable bowel syndrome, unspecified (3) Postprandial epigastric pain: Code(s): R10.13 - Epigastric pain Plan Patient will continue MiraLax on as needed basis. Exam negative for any acute findings. Patient has normal bowel sounds. Patient will start taking pantoprazole 20 mg in the morning and will take famotidine at bedtime. Discussed with patient the importance of avoiding dietary triggers and late night snacking. Staying upright for minimum 3 hours after meals discussed with patient. Medications: New pantoprazole 20 mg PO DAILY 30 tabs 3RF famotidine (Pepcid) 20 mg PO BEDTIME 30 tabs 3RF K21.9 - Gastro-esophageal reflux disease without esophagitis Coding Level of Care Code Est Pt Level 3 (42202) Diagnoses Gastroesophageal reflux disease, unspecified whether esophagitis present K21.9 Esophagitis presence: esophagitis presence not specified Irritable bowel syndrome without diarrhea K58.9 Irritable bowel syndrome type: without diarrhea Postprandial epigastric pain R10.13 Time Spent (min) 30 Comment 20 minutes spent with patient and additional 10 minutes spent reviewing her records
== END 2024-03-03 11:46 | disposition home or self-care (01) ==
PROVIDERS: PCP Internal Medicine; Visit Provider Nurse Practitioner Family
DX: K21.9 Gastro-esophageal reflux disease without esophagitis (principal); K58.9 Irritable bowel syndrome, unspecified; R10.13 Epigastric pain
CPT/HCPCS: 99213

== ENCOUNTER → 2024-03-03 11:04 | Outpatient (BNVA) | payer MEDICAID, SELFPAY | PROVIDERS: PCP Internal Medicine; Visit Provider Nurse Practitioner Family | DX: K21.9 Gastro-esophageal reflux disease without esophagitis (principal); K58.9 Irritable bowel syndrome, unspecified; R10.13 Epigastric pain | CPT/HCPCS: 99212 ==

== ENCOUNTER 2024-03-11 17:48 | Outpatient (REF) | payer MEDICAID, SELFPAY ==
[2024-03-12 02:57] LABS: CT PCR NOT DETECTED (Not Detect.); NG PCR NOT DETECTED (Not Detect.)
[2024-03-12 11:35] LABS: Bacterial Vaginosis PCR POSITIVE (Negative); Candida Group PCR NOT DETECTED (Not Detect); Candida glab krusei PCR NOT DETECTED (Not Detect); Trichomonas vaginalis PCR NOT DETECTED (Not Detect)
== END 2024-03-11 17:49 | disposition home or self-care (01) ==
LOC: HO.HHCLNP 17:48
PROVIDERS: Visit Provider Nurse Practitioner
DX: N89.8 Other specified noninflammatory disorders of vagina (principal)
CPT/HCPCS: 0352U; 87491; 87591

== ENCOUNTER 2024-03-12 11:39 | Outpatient (REF) | payer MEDICAID, SELFPAY ==
[2024-03-12 13:44] LABS: Appearance Urine Clear; Color Urine Yellow; Glucose Urine UA Negative (Negative); Leukocyte Esterase Urine Moderate (2+) (Negative); Nitrite Urine Negative (Negative); PH 7.5 (5.0-9.0); Specific Gravity - Urine 1.015 (1.005-1.025); UMIC TRIGGER UACC YES; Urine Blood Negative (Negative); Urine Ketones Negative (Negative); Urine Protein Negative (Neg-Trace)
[2024-03-12 13:56] LABS: Bacteria Urine None Seen (None Seen); Calcium Oxalate Crystals Urine Present; Hyaline Casts Urine 0-2 /LPF (0-2); WBC Urine 0-5 /HPF (0-5)
== END 2024-03-12 11:40 | disposition home or self-care (01) ==
LOC: HO.HHCL 11:39
PROVIDERS: PCP Internal Medicine; Visit Provider Nurse Practitioner
DX: R30.0 Dysuria (principal)
CPT/HCPCS: 81001

== ENCOUNTER 2024-03-19 14:41 | Outpatient (REF) | payer MEDICAID, SELFPAY | END 2024-03-19 14:42 | disposition home or self-care (01) | LOC: HO.HHCL 14:41 | PROVIDERS: Visit Provider Advanced Practice Midwife | DX: R30.0 Dysuria (principal) | CPT/HCPCS: 87086 ==

== ENCOUNTER 2024-03-29 12:50 | Outpatient (RCR) | payer MEDICAID, SELFPAY | END 2024-04-30 07:05 | disposition home or self-care (01) | LOC: HO.PT 12:50 | PROVIDERS: PCP Internal Medicine; Visit Provider Psychiatry & Neurology Neurology | DX: R27.0 Ataxia, unspecified (principal) | CPT/HCPCS: 97112; 97162 ==

== ENCOUNTER 2024-04-02 14:06 | Outpatient (RCR) | payer MEDICAID, SELFPAY | END 2024-08-27 15:11 | disposition home or self-care (01) | LOC: HO.OT 14:06 | PROVIDERS: PCP Internal Medicine; Visit Provider Psychiatry & Neurology Neurology | DX: R27.0 Ataxia, unspecified (principal) | CPT/HCPCS: 97110; 97165; 97166; 97530 ==

== ENCOUNTER 2024-04-12 13:36 | Outpatient (REF) | payer MEDICAID, SELFPAY ==
[2024-04-12 17:27] LABS: HCG Quantitative < 2 mIU/mL
== END 2024-04-12 13:37 | disposition home or self-care (01) ==
LOC: HO.HHCL 13:36
PROVIDERS: Visit Provider Advanced Practice Midwife
DX: N92.6 Irregular menstruation, unspecified (principal)
CPT/HCPCS: 36415; 84702

== ENCOUNTER 2024-04-13 11:20 | Outpatient (REF) | payer MEDICAID, SELFPAY | END 2024-04-13 11:21 | disposition home or self-care (01) | LOC: HO.HHCL 11:20 | PROVIDERS: Visit Provider Advanced Practice Midwife | DX: R30.0 Dysuria (principal) | CPT/HCPCS: 87086; 87088; 87186 ==

== ENCOUNTER 2024-04-27 10:57 | Outpatient (REF) | payer MEDICAID, SELFPAY ==
[2024-04-27 13:46] LABS: HCG Quantitative < 2 mIU/mL
== END 2024-04-27 10:58 | disposition home or self-care (01) ==
LOC: HO.HHCL 10:57
PROVIDERS: Internal Medicine; Visit Provider Advanced Practice Midwife
DX: Z30.42 Encounter for surveillance of injectable contraceptive (principal)
CPT/HCPCS: 36415; 84702

== ENCOUNTER 2024-11-02 16:17 | Outpatient (REF) | payer MEDICAID, SELFPAY ==
[2024-11-02 17:16] LABS: Appearance Urine Turbid; Color Urine Dark Yellow; Glucose Urine UA Negative (Negative); Leukocyte Esterase Urine Moderate (2+) (Negative); Nitrite Urine Negative (Negative); PH 5.5 (5.0-9.0); Specific Gravity - Urine >= 1.030 (1.005-1.025); UMIC TRIGGER UACC YES; Urine Blood Small (1+) (Negative); Urine Ketones Trace mg/dL (Negative); Urine Protein Trace mg/dL (Neg-Trace)
[2024-11-02 18:04] LABS: Bacteria Urine 4+ (None Seen); Calcium Oxalate Crystals Urine Present; Hyaline Casts Urine 0-2 /LPF (0-2); Squamous Epithelial Cell Urine >20 /HPF (0-2); UACC Culture Trigger YES; WBC Urine 21-50 /HPF (0-5)
--- OUTSIDE RECORDS SUMMARY | 2024-11-02 19:00 | XMS_ITS | Encounter Summary ---
Author Organization [email or web address] Address [address] 7 [place] [address] Care Team Providers Care Billing Assistant Name Role Phone Tricia Bearden MD Primary Care Provider + Encounter Details Date Type Department Care Team (Late st Contact Info) Description 07/10/2022 Orders Only [facility] [address] [place] [address] Tricia Bearden MD [address] [place] [address] Bacterial vaginitis (Primary Dx) Social History Tobacco Use Types Packs/Day Years Used Date Smoking Tobacco: Never Smokeless Tobacco: Never Alcohol Use Standard Drinks/Week Comments Never 0 (1 standard drink = 0.6 oz pur e alcohol) PHQ-2 Answer Date Recorded Patient Health Questionnaire-2 Score 0 05/23/2022 Depression Answer Date Recorded Patient Health Questionnaire-2 Score 0 05/23/2022 Comments Unknown Sex and Gender Information Value Date Recorded Sex Assigned at Female 03/11/2022 10:31 AM EDT Legal Sex Female 10:31 AM EDT Gender Identity Female 03/11/2022 10:31 AM EDT Sexual Orientation Straight 03/15/2024 9: 29 AM EST COVID-19 Exposure Response Date Recorded In the last 10 days, have yo u been in contact with someone who was confirmed or suspected to have Coronavirus/COVID-19? No / Unsure 07/02/2022 9:03 AM EST documented as of this encounter Plan of Treatment Upcoming Encounters Date Type Department Care Team (Late st Contact Info) Description 11/08/2024 10:15 AM EDT Office Visit [facility] [address] [place] [address] Molly Marcial CNArmando [address] [place] [address] 12/10/2024 9:15 AM EDT Office Visit [facility] [address] [place] [address] Tricia Bearden MD [address] [place] [address] 03/14/2025 1:00 PM EST Office Visit [facility] OPT[facility] [address] [place] [address] Esthela Bourne, OD [address] [place] [address] 04/11/2025 1:00 PM EST Office Visit [facility] P[facility]ENT[facility] [address] [place] [address] documented as of this encounter Visit Diagnoses Diagnosis Bacterial vaginitis- Primary Unspecified vaginitis and vulvovaginitis documented in this encounter Care Teams Billing Assistant Relationship Specialty Start Date End Date Tricia Bearden MD [address] [place] [address] PCP - General Family Medicine 03/27/21 Rell Weston Blade SharpenerDean Of Student Services 07/10/23 documented as of this encounter
[2024-11-02 21:14] LABS: Bacterial Vaginosis PCR POSITIVE (Negative); Candida Group PCR NOT DETECTED (Not Detect); Candida glab krusei PCR NOT DETECTED (Not Detect); Trichomonas vaginalis PCR NOT DETECTED (Not Detect)
[2024-11-02 21:48] LABS: CT PCR NOT DETECTED (Not Detect.); NG PCR NOT DETECTED (Not Detect.)
== END 2024-11-02 16:18 | disposition home or self-care (01) ==
LOC: HO.HHCLNP 16:17
PROVIDERS: Visit Provider Student in an Organized Health Care Education/Training Program
DX: R30.9 Painful micturition, unspecified (principal)
CPT/HCPCS: 81001; 81515; 87086; 87491; 87591

== ENCOUNTER 2024-12-29 18:12 | Outpatient (REF) | payer MEDICAID, SELFPAY ==
--- OUTSIDE RECORDS SUMMARY | 2024-12-29 18:14 | XMS_ITS | Encounter Summary ---
Author Organization [employer] Address [address] [facility] [address] [facility] [address] [place] [address] Care Team Providers Care Plasterer Rough Name Role Phone Tricia Bearden MD Primary Care Provider + Nestor Mares RN Unavailable [phone] Tamy Abebe Unavailable Encounter Details Date Type Department Care Team (Late st Contact Info) Description 03/19/2023 Telephone [facility] [address] [place] [address] Tricia Bearden MD [address] [place], [place] [id number] Social History Tobacco Use Types Packs/Day Years Used Date Smoking Tobacco: Never Passive Smoke Exposure: Never Smokeless Tobacco: Never Alcohol Use Standard Drinks/Week Comments Never 0 (1 standard drink = 0.6 oz pur e alcohol) PHQ-2 Answer Date Recorded Patient Health Questionnaire-2 Score 0 05/23/2022 Housing Stability Answer Date Recorded What is your housing situation today? I have yoshi sing 02/26/[address] you li ve. Do you have problems with any of the following? None of the above 02/26/2023 Food Insecurity Answer Date Recorded Within the past 12 months, y ou worried that your food would run out before you got money to buy more: Never True 02/26/2023 Within the past 12 months,th e food you bought just didn't last and you didn't have enough money to get more: Never True Transportation Answer Date Recorded In the past 12 months, has l ack of transportation kept you from medical appts, meetings, work or from getting things needed for daily living? Yes, it has kept me from medical appointments or getting medications. 02/17/2023 Utilities Answer Date Recorded In the past 12 months, has t he electric, gas, oil or water company threatened to shut off services in your home? No 02/26/2023 Depression Answer Date Recorded Patient Health Questionnaire-2 Score 0 05/23/2022 Comments No Sex and Gender Information Value Date Recorded Sex Assigned at Female 03/11/2022 10:31 AM EDT Legal Sex Female 10:31 AM EDT Gender Identity Female 03/11/2022 10:31 AM EDT Sexual Orientation Straight 03/15/2024 9: 29 AM EST documented as of this encounter Plan of Treatment Upcoming Encounters Date Type Department Care Team (Late st Contact Info) Description 03/14/2025 1:00 PM EST Office Visit [facility] OPTOMETRY [address] [place] [address] Esthela Bourne, OD [address] [place] [address] 04/11/2025 1:00 PM EST Office Visit [facility] PEDI[facility] DENTAL [address] [place] [address] documented as of this encounter Visit Diagnoses Not on filedocumented in this encounter Care Teams Plasterer Rough Relationship Specialty Start Date End Date Tricia Bearden MD [address] [place] [address] PCP - General Family Medicine 03/27/21 Nestor Maers, RN [address] [place] [address] Registered Nurse Family Medicine 12/14/24 Tamy Abebe 12/14/24 Rell Weston [employer] Route AideSpeech Therapist Early Intervention 07/10/23 documented as of this encounter
[2024-12-31 21:38] LABS: C. trachomatis RNA TMA NOT DETECTED (NOT DETECTED); N. gonorrhoeae RNA TMA NOT DETECTED (NOT DETECTED)
[2024-12-31 22:18] LABS: Trichomonas (NAAT) NOT DETECTED (NOT DETECTED)
== END 2024-12-29 18:13 | disposition home or self-care (01) ==
LOC: HO.LNP 18:12
PROVIDERS: Visit Provider Advanced Practice Midwife
DX: Z11.3 Encounter for screening for infections with a predominantly sexual mode of transmission (principal); Z12.4 Encounter for screening for malignant neoplasm of cervix; Z11.8 Encounter for screening for other infectious and parasitic diseases
CPT/HCPCS: 87491; 87591; 87661; 88175

== ENCOUNTER 2025-02-22 18:54 | Outpatient (REF) | payer MEDICAID, SELFPAY ==
--- OUTSIDE RECORDS SUMMARY | 2025-02-22 09:15 | XMS_ITS | Encounter Summary ---
Author Organization [employer] Address [address] [facility] 7t [place] [address] Care Team Providers Care Qa Tester Name Role Phone Tricia Bearden MD Primary Care Provider + Nestor Mares RN Unavailable [phone] Tamy Abebe Unavailable Encounter Details Date Type Department Care Team (Late st Contact Info) Description 02/22/2025 9:15 AM EDT Office Visit [facility] MEDICINE [address] [place], [place] [phone] Molly Marcial CNM [address] [place], [place] [phone] Vaginal discharge (Primary Dx) Social History Tobacco Use Types Packs/Day Years Used Date Smoking Tobacco: Never Passive Smoke Exposure: Never Smokeless Tobacco: Never Alcohol Use Standard Drinks/Week Comments Never 0 (1 standard drink = 0.6 oz pur e alcohol) Depression Answer Date Recorded Patient Health Questionnaire-9 Score 2 01/05/2025 Patient Health Questionnaire-9 Score 2 01/05/2025 Last PHQ-9: Questionnaire Data Not on file 0 01/05/2025 Housing Stability Answer Date Recorded What is your housing situation today? I have yoshi dos santos 12/14/[address] you li ve. Do you have problems with any of the following? None of the above 12/14/2024 Food Insecurity Answer Date Recorded Within the past 12 months, y ou worried that your food would run out before you got money to buy more: Sometimes True 2024 Within the past 12 months,th e food you bought just didn't last and you didn't have enough money to get more: Sometimes True 05/18/2024 Transportation Answer Date Recorded In the past 12 months, has l ack of transportation kept you from medical appts, meetings, work or from getting things needed for daily living? No 08/28/2023 Intimate Partner Violence Answer Date R ecorded Within the last year, have y ou been afraid of your partner or ex-partner? 2 01/05/2025 Within the last year, have y ou been humiliated or emotionally abused in other ways by your partner or ex-partner? 2 Within the last year, have y ou been kicked, hit, slapped, or otherwise physically hurt by your partner or ex-partner? 2 01/05/2025 Within the last year, have y ou been raped or forced to have any kind of sexual activity by your partner or ex-partner? 2 01/05/2025 Utilities Answer Date Recorded In the past 12 months, has t he [employer], gas, oil or water company threatened to shut off services in your home? No 08/28/2023 Depression Answer Date Recorded Patient Health Questionnaire-2 Score 0 01/05/2025 Internet Access Answer Date Recorded Internet Access Q1 Yes 05/18/2024 Internet Access Q2 Not on file 05/18/2024 Comments Unknown Sex and Gender Information Value Date Recorded Sex Assigned at Female 03/11/2022 10:31 AM EDT Legal Sex Female 10:31 AM EDT Gender Identity Female 03/11/2022 10:31 AM EDT Sexual Orientation Straight 03/15/2024 9: 29 AM EST documented as of this encounter Last Filed Vital Signs Vital Sign Reading Time Taken Comments Blood Pressure 110/64 02/22/2025 9:25 AM EDT Pulse 86 02/22/2025 9:25 AM EDT Temperature 37.2 C (98.9 F) 02/22/2025 9:25 AM EDT Respiratory Rate 20 02/22/2025 9:25 AM EDT Oxygen Saturation 98% 02/22/2025 9:25 AM EDT Inhaled Oxygen Concentration - - Weight 41 kg (90 lb 6.4 oz) 02/22/2025 9:25 AM E DT Height - - Body Mass Index 19.56 12/10/2024 9:09 AM EDT documented in this encounter Progress Notes * Molly Marcial CNM - 02/22/2025 9:15 AM EDT Subjective Patient ID: Kelsi Martinez??n Anabella Robbins is a 24 y.o. female who presents for vaginal symptoms Here with grandmother who remained for visit with Kelsi's consent. Notes persistent vaginal discharge after treatment for bacterial vaginosis, improved somewhat but persists. Not sexually active,no new partners. LMP 02/19/2025. Hoping to get her license, working on steps to live more independently. Pap NIL., Gonorrhea/Chlamydia/trichomonas neg 12/2024. History of bacterial vaginosis, treated 02/2024, 10/2024. Would like pelvic exam for swab collection today. Review of Systems Constitutional: Negative for chills and fever. Gastrointestinal: Negative for abdominal pain. Genitourinary: Positive for vaginal discharge. Negative for dysuria, flank pain, frequency, pelvic pain, vaginal bleeding and vaginal pain. Musculoskeletal: Negative for back pain. Objective BP 110/64 (BP Location: Left arm, Patient Position: Sitting, BP Cuff Size: Adult) Pulse 86 Temp98.9 ??F (37.2 ??C) (Oral) Resp 20 Wt 90 lb 6.4 oz (41 kg) SpO2 98% BMI 19.56 kg/m?? Physical Exam Exam conducted with a documentation engineer present (ANTHONY Rowan). Constitutional: Appearance: Normal appearance. Genitourinary: General: Normal vulva. Labia: Right: No rash, tenderness, lesion or injury. Left: No rash, tenderness, lesion or injury. Vagina: Normal. No vaginal discharge. Cervix: Normal. Comments: Bimanual deferred Neurological: Mental Status: She is alert. Psychiatric: Mood and Affect: Mood normal. Behavior: Behavior normal. Assessment/Plan Diagnoses and all orders for this visit: Vaginal discharge - POCT fern test, vaginal fluid manually resulted - Bacterial Vaginosis, Yeast and Trich No obvious vaginitis. Avoid irritants. Will send bacterial vaginosis swab today and contact with results. documented in this encounter Plan of Treatment Upcoming Encounters Date Type Department Care Team (Late st Contact Info) Description 03/14/2025 1:00 PM EST Office Visit [facility] OPTOMETRY [address] [place] [address] Steffen, Eshtela, OD [address] [place] [address] 04/11/2025 1:00 PM EST Office Visit [facility] PEDIATRIC DENTAL [address] [place] [address] Scheduled Orders Name Type Priority Associated Diagnoses Orde r Schedule Bacterial Vaginosis, Yeast and Trich Microbiology Routine Vaginal discharge Ordered: 02/22/2025 documented as of this encounter Procedures Procedure Name Priority Date/Time Associated Diagnosis Comments POCT WET MOUNT/TACHO Routine 02/22/2025 9: 48 AM EDT Vaginal discharge documented in this encounter Results * POCT fern test, vaginal fluid manually resulted (02/22/2025 9:48 AM EDT) TACHO Prep Negative Comment:pH 4.5, neg whiff, n eg clue, neg trich, few wbc, neg yeast Vaginal Fluid Vaginal structure / Unknown 02/22/2025 9:48 AM EDT Molly Marcial CNM POINT OF CARE TEST ENTER/ EDIT ORDERABLES Final Result documented in this encounter Visit Diagnoses Diagnosis Vaginal discharge- Primary Leukorrhea, not specified as infective documented in this encounter Additional Health Concerns Assessment Noted Time PHQ-9 Depression Total Score: 2 01/06/20 25 9:28 AM EDT documented as of this encounter Care Teams Qa Tester Relationship Specialty Start Date End Date Tricia Bearden MD [address] [place] [address] PCP - General Family Medicine 03/27/21 Nestor Mares, HIREN [address] [place] [address] Registered Nurse Family Medicine 12/14/24 Tamy Abebe 12/14/24 Rell Weston Kayaking InstructorInsurance Operations Rep 07/10/23 documented as of this encounter
--- OUTSIDE RECORDS SUMMARY | 2025-02-22 18:59 | XMS_ITS | Encounter Summary ---
Author Organization [facility] Address [address] [facility] [address] [place] [address] Phone Care Team Providers Care Customer Engineering Specialist Name Role Phone Mariam Tran MD Primary Care Provider Tricia Bearden MD Primary Care Provider + Encounter Details Date Type Department Care Team (Late Contact Info) Description 01/09/[address], [address] [place] [address] Anna Lamas MD, PhD [address] [place] [phone] [email or web address] Social History Tobacco Use Types Packs/Day Years Used Date Smoking Tobacco: Never Smokeless Tobacco: Never Alcohol Use Standard Drinks/Week Comments Never 0 (1 standard drink = 0.6 oz pur e alcohol) Comments Unknown Sex and Gender Information Value Date Recorded Sex Assigned at Female 04/11/2021 9:56 AM EST Legal Sex Female 2:38 PM EDT Gender Identity Female 04/11/2021 9:56 AM EST Sexual Orientation Choose not to disclose 2021 12:41 PM EDT documented as of this encounter Plan of Treatment Upcoming Encounters Date Type Department Care Team (Late Contact Info) Description 02/24/2025 4:10 PM EDT Office Visit [facility] [address] [place] [address], [place] [address] Katrin Mondragon MD, PhD [address] [place] [phone] [email or web address] documented as of this encounter Visit Diagnoses Not on filedocumented in this encounter Additional Health Concerns Assessment Noted Time PHQ-2 Depression Total Score: 1 01/10/20 22 12:14 PM EDT documented as of this encounter Care Teams Customer Engineering Specialist Relationship Specialty Start Date End Date Mariam Tran MD [address] [place], [place] [phone] PCP - General Pediatrics 01/15/17 10/19/23 Tricia Bearden MD [address] [facility] [address] [place] [phone] PCP - General Internal Medicine 10/20/23 documented as of this encounter Additional Source Comments The information contained in this document represents components of the legal health record. It is not the complete legal health record.[facility]
--- OUTSIDE RECORDS SUMMARY | 2025-02-22 19:00 | XMS_ITS | Encounter Summary ---
Author Organization [employer] Address [address] [facility] 7t [place] [address] Care Team Providers Care Binman Name Role Phone Tricia Bearden MD Primary Care Provider + Nestor Mares RN Unavailable [phone] Tamy Abebe Unavailable Encounter Details Date Type Department Care Team (Late st Contact Info) Description 07/10/[address] [facility] MEDICINE [address] [place] [address] Tricia Bearden MD [address] [place] [address] Bacterial vaginitis (Primary Dx) Social History Tobacco [...] Description 03/14/2025 1:00 PM EST Office Visit [facility] OPTOMETRY [address] [place] [address] SteffenSyed delgadon, OD [address] [place] [address] 04/11/2025 1:00 PM EST Office Visit [facility] PEDIATRIC DENTAL [address] [place] [address] documented as of this encounter Visit Diagnoses Diagnosis Bacterial vaginitis- Primary Unspecified vaginitis and vulvovaginitis documented in this encounter Care Teams Binman Relationship Specialty Start Date End Date Tricia Bearden MD [address] [place] [address] PCP - General Family Medicine 03/27/21 Nestor Mares, RN [address] [place] [address] Registered Nurse Family Medicine 12/14/24 Tamy Abebe 12/14/24 Rell Weston Electrical InspectorWind Turbine Erector 07/10/23 documented as of this encounter
--- OUTSIDE RECORDS SUMMARY | 2025-02-22 19:00 | XMS_ITS | Encounter Summary ---
Author Organization [facility] Address [address] [facility] [address] [place] [address] Phone Care Team Providers Care Head Athletic Trainer/Strength Coach Name Role Phone Mariam Tran MD Primary Care Provider Tricia Bearden MD Primary Care Provider + Reason for Referral * Consultation (Routine) - Closed Specialty Diagnoses / Procedures Referred By Tracey castillo Referred To Contact Neurology Diagnoses Cerebellar ataxia Mariam Tran MD Phone: tel: Katrin Mondragon MD, PhD Phone: tel: fax: [email or web address] Referral ID Status Reason Start Date Expiration Date Visits Re quested Visits Authorized [id number] Closed 07/03/2017 07/03/2018 6 6 Scheduling Instructions Request for ataxia clinic, pt is 16 years old Encounter Details Date Type Department Care Team (Late st Contact Info) Description 03/05/2017 Transcribe Orders [facility] Department of Neurology [address] [facility], 8th [address], [address] [place] [address] Mariam Tran MD [address] [place] [address] Cerebellar ataxia (Primary Dx) Social History Tobacco Use Types Packs/Day Years Used Date Smoking Tobacco: Never Assessed Comments Unknown Sex and Gender Information Value Date Recorded Sex Assigned at Female 04/11/2021 9:56 AM EST Legal Sex Female 2:38 PM EDT Gender Identity Female 04/11/2021 9:56 AM EST Sexual Orientation Choose not to disclose 2021 12:41 PM EDT documented as of this encounter Plan of Treatment Upcoming Encounters Date Type Department Care Team ([facility] st Contact Info) Description 02/24/2025 4:10 PM EDT Office Visit [facility] DEPARTMENT OF NEUROLOGY [address] [place] [address] Katrin Mondragon MD, PhD [address] [place] [phone] [email or web address] Scheduled Referrals Name Type Priority Associated Diagnoses Order Schedule Ambulatory referral to [facility] Neurology Outpatient Referral Routine Cerebellar ataxia Ordered: 03/05/2017 documented as of this encounter Visit Diagnoses Diagnosis Cerebellar ataxia- Primary Other cerebellar ataxia documented in this encounter Care Teams Head Athletic Trainer/Strength Coach Relationship Specialty Start Date End Date Mariam Tran MD [address] [place] [address] PCP - General Pediatrics 01/15/17 10/19/23 Tricia Bearden MD [address] [place] [address] [address] [place] [phone] PCP - General Internal Medicine 10/20/23 documented as of this encounter Additional Source Comments The information contained in this document represents components of the legal health record. It is not the complete legal health record.[facility]
--- OUTSIDE RECORDS SUMMARY | 2025-02-22 19:00 | XMS_ITS | Encounter Summary ---
Author Organization [email or web address] Address [address] [facility] 7 [place] [address] Care Team Providers Care Tie Fastener Name Role Phone Tricia Bearden MD Primary Care Provider + Nestor Mares RN Unavailable [phone] Tamy Abebe Unavailable Reason for Visit * Reason Onset Date Comments Appointment Request 02/18/2025 Encounter Details Date Type Department Care Team (Late st Contact Info) Description 02/18/2025 Telephone [facility] MEDICINE [address] [place], [place] [phone] Teresita Almanzar RN [address] [place], [place] [phone] Appointment Request Social History Tobacco Use Types Packs/Day Years [...] the past 12 months, has t he [employer], gas, oil or water [employer] threatened to shut off services in your [...] AM EST documented as of this encounter Miscellaneous Notes * Telephone Encounter - Teresita Almanzar RN - 02/18/2025 11:14 AM EDT TC placed to pt. As mychart message was received requesting appointment with PCP. Pt. Requesting anappointment with provider to complete forms for RMV for medical evaluation, also has forms for eye care provider at clinic to certify vision. Pt. Will bring these forms to MR department, advised of 10-14 day completion time and pt. Verbalizes understanding documented in this encounter Plan of Treatment Upcoming Encounters Date Type Department Care Team (Late st Contact Info) Description 03/14/2025 1:00 PM EST Office Visit [facility] OPTOMETRY [address] [place] [address] Steffen, Esthela, OD [address] [place] [address] 04/11/2025 1:00 PM EST Office Visit [facility] PEDIATRIC DENTAL [address] [place] [address] documented as of this encounter Visit Diagnoses Not on filedocumented in this encounter Additional Health Concerns Assessment Noted Time PHQ-9 Depression Total Score: 2 01/06/20 25 9:28 AM EDT documented as of this encounter Care Teams Tie Fastener Relationship Specialty Start Date End Date Tricia Bearden MD [address] [place] [address] PCP - General Family Medicine 03/27/21 Nestor Mares, HIREN [address] [place] [address] Registered Nurse Family Medicine 12/14/24 Tamy Abebe 12/14/24 Rell Weston DockworkerStone Setter Metal Optical Frames 07/10/23 documented as of this encounter
--- OUTSIDE RECORDS SUMMARY | 2025-02-22 19:00 | XMS_ITS | Encounter Summary ---
Author Organization [employer] Address [address] [facility] 7t [place] [address] Care Team Providers Care Coat Feller Name Role Phone Tricia Bearden MD Primary Care Provider + Nestor Mares RN Unavailable [phone] Tamy Abebe Unavailable Encounter Details Date Type Department Care Team ([facility] Contact Info) Description 09/10/2022 Orders Only [facility] MED & PEDS [address] [place] [address] Jody Foote LPN Social History Tobacco Use Types Packs/Day Years [...] suspected to have Coronavirus/COVID-19? No / Unsure 08/28/2022 12:57 PM EDT documented as of this encounter Plan of Treatment Upcoming Encounters Date Type Department Care Team ([facility] Contact Info) Description 03/14/2025 1:00 PM EST Office Visit [facility] OPTOMETRY [address] [place], [place] [phone] Esthela Bourne, OD [address] [place] [address] 04/11/2025 1:00 PM EST Office Visit [facility] PEDIATRIC DENTAL [address] [place] [address] documented as of this encounter Visit Diagnoses Not on filedocumented in this encounter Care Teams Coat Feller Relationship Specialty Start Date End Date Tricia Bearden MD [address] [place], [place] [phone] PCP - General Family Medicine 03/27/21 Nestor Mares, RN [address] [place] [address] Registered Nurse Family Medicine 12/14/24 Tamy Abebe 12/14/24 Rell Weston Automation Design EngineerBusiness Improvement Manager 07/10/23 documented as of this encounter
--- OUTSIDE RECORDS SUMMARY | 2025-02-22 19:00 | XMS_ITS | Clinical Summary ---
Author Organization [facility] Address [address] [address] Phone Care Team Providers Care Continuity Tester Name Role Phone Tricia Bearden MD Primary Care Provider + Allergies No known active allergies Medications cetirizine (ZYRTEC) 10 MG tablet TAKE 1 TABLET BY MOUTH ONCE DAILY NEEDED FOR ALLERGIES 3 Active fluticasone propionate (FLONASE) 50 mcg/actuation nasal spray 3 Active polyvinyl alcohol (AKWA TEARS) 1.4 % ophthalmic solution PLACE 1 DROP IN EACH EYE THREE TIMES DAILY NEEDED FOR DRY EYES OR FOR ITCHING 3 Active famotidine (PEPCID) 20 MG tablet Take 1 tablet by mouth 2 (two) times a day. 3 Active dalfampridine (AMPYRA) 10 mg Tb12 ER tabletIndicati ons:Ataxia Take 1 tablet (10 mg total) by mouth every 12 (twelve) hours. Do not divide, crush, chew, or dissolve. Doses should be taken approximately 12 hours apart. DO NOT take more than 2 doses in any 24 hour period. 60 tablet 1 5 Active sertraline (ZOLOFT) 50 MG tablet Take 1 tablet (50 mg total) by mouth daily. 90 tablet 1 5 Active QUEtiapine (SEROQUEL) 25 MG tablet Take 1 tablet (25 mg total) by mouth nightly at bedtime as needed (insomnia, anxiety). 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 Not on patricia e 09/06/2022 Are you concerned about learning? Not on file 09/06/2022 No 09/06/2022 No 09/06/2022 Digital Access Answer Date Recorded No 10/07/2022 No 10/07/2022 Reliable internet access at home? Not on file 10/07/2022 Device with a working camera? Not on file Comments Unknown Sex and Gender Information Value Date Recorded Sex Assigned at Female 04/11/2021 9:56 AM EST Legal Sex Female 2:38 PM EDT Gender Identity Female 04/11/2021 9:56 AM EST Sexual Orientation Choose not to disclose 2021 12:41 PM EDT Last Filed Vital Signs Vital Sign Reading Time Taken Comments Blood Pressure 105/67 07/29/2024 2:36 PM EDT Pulse 83 07/29/2024 2:36 PM EDT Temperature 37.1 C (98.7 F) 07/29/2024 2:36 PM EDT Respiratory Rate - - Oxygen Saturation 99% 07/29/2024 2:36 PM EDT Inhaled Oxygen Concentration - - Weight 42.5 kg (93 lb 12.8 oz) 07/29/2024 2:36 P M EDT Height 144.8 cm (4' 9 ) 07/29/2024 2:36 PM EDT Body Mass Index 20.3 07/29/2024 2:36 PM EDT Plan of Treatment Upcoming Encounters Date Type Department Care Team ([facility] st Contact Info) Description 02/24/2025 4:10 PM EDT Office Visit [facility] DEPARTMENT OF NEUROLOGY [address] [place] [phone] [place] [address] Katrin Mondragon MD, PhD [address] [facility] [address] [place] [phone] [email or web address] Health Maintenance Due Date Last Done Comments HPV VACCINES (1 - 3-dose series) 2015 CHLAMYDIA SCREENING 2016 HEPATITIS C SCREENING 2018 HIV ONE-TIME SCREENING (18-6 5 YEARS) 2018 HEPATITIS A VACCINES (2 of 2 - 2-dose series) 12/10/2018 06/12/2018 INFLUENZA VACCINE (#1) 2024 0, 06/12/2018 COVID-19 VACCINE (2 - 2024-2 6 season) 2025 08/07/2020 DEPRESSION SCREENING 01/19/2026 01/19/2025, 10/14/2023 SMOKING Hx and SMOKELESS TOBACCO SCREENING 01/19/2026 01/19/2025 PAP SMEAR 12/30/2027 12/29/2024 Adult Td,Tdap Booster 04/12/2034 04/12/2024 , 2013 HIB VACCINES Aged Out No longer eligi ble based on patient's age to complete this topic MENINGOCOCCAL VACCINES (ACWY) Aged Out No longer eligible based on patient's age to complete this topic MENINGOCOCCAL VACCINES (B) Aged Out N o longer eligible based on patient's age to complete this topic PNEUMOCOCCAL VACCINES (0-49 years) Aged Out No longer eligible b ased on patient's age to complete this topic Medical Devices Not on file Insurance [address] [place] [address], [place] [address] [facility] C3 ACO C3 ACO C3 ACO C3 ACO C3 ACO C3 ACO C3 ACO C3 ACO C3 ACO C3 ACO C3 ACO C3 ACO C3 ACO C3 ACO C3 ACO [facility] C3 ACO [facility] C3 ACO Care Teams Continuity Tester Relationship Specialty Start Date End Date Tricia Bearden MD [address] [place] [address] [address] [place] [phone] PCP - General Internal Medicine 10/20/23 Additional Source Comments The information contained in this document represents components of the legal health record. It is not the complete legal health record.[facility]
--- OUTSIDE RECORDS SUMMARY | 2025-02-22 19:00 | XMS_ITS | Clinical Summary ---
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 Core Antibody Nonreactive Nonreactive [facility] Hepatitis C Antibody Nonreactive Nonreactive [facility] Comment:Antibodies to HCV no t detected; does not exclude early acuteHCV infection. Hepatitis B Surface Ag Negative Negative [facility] Blood 11/18/2023 10:0 2 AM EDT 11/18/2023 10:39 AM EDT us Tricia Bearden MD LAB BLOOD ORDERABLES Fin al Result Performing Organization Address [facility] Co de Phone Number [facility] [address] [place] [phone] * HIV 1/2 ANTIGEN/ANTIBODY,FOURTH GENERATION W/RFL (08/11/2020 3:49 PM EDT) [facility] HIV-1/2 ANTIGEN AND ANTIBODIES, 4TH GENERATION W/ REFLEX NON-REACT DARRON NON-REACT DARRON [facility] Comment: HIV-1 antigen and HIV-1/HIV-2 antibodies were not detected. There is no laboratory evidence of HIV infection. PLEASE NOTE: This information has been disclosed to you from records whose confidentiality may be protected by state law. If your state requires such protection, then the state law prohibits you from making any further disclosure of the information without the specific written consent of the person to whom it pertains, or as otherwise permitted by law. A general authorization for the release of medical or other information is NOT sufficient for this purpose. For additional information please refer to http://education.TrekkSoft.Gigoptix/faq/PAG467 (This link is being provided for informational/ educational purposes only.) The performance of this assay has not been clinically validated in patients less than 2 years old. 08/11/2020 3:49 PM EDT us Mariam Tran MD LAB BLOOD ORDERABLES Final Re sult [facility] [address] [place] [address], from Last 3 Months or Most Recently Relevant to Health Maintenance Insurance [facility] [facility] MEDICAID DDS ADULT Care Teams Adjunct Mathematics Instructor Relationship Specialty Start Date End Date Tricia Bearden MD [address] [place] [address] PCP - General Family Medicine 03/27/21 Nestor Mares, RN [address] [place] [address] Registered Nurse Family Medicine 12/14/24 Tamy Abebe 12/14/24 Rell Weston Insurance Claims ClerkImmigration Law Specialist 07/10/23
--- OUTSIDE RECORDS SUMMARY | 2025-02-22 19:00 | XMS_ITS ---
Author Organization [employer] Address [address] [facility] 7 [place] [address] Care Team Providers Care Photo Mask Inspector Name Role Phone Tricia Bearden MD Primary Care Provider + Nestor Mares RN Unavailable [phone] Tamy Abebe Unavailable [facility] Status:Enrolled (Active) Start date:12/14/2024 Enrollment date:12/14/2024 Enrollment reason:Referred by provider Overview Provider Referral- Patient's BUSGIRL left recently, patient and current caregiver do not have much information re patient's medical care as her previous BUSGIRL used to take her to all appts, please reach out to them and give her info to fu on home care (she's out of home svc) (Please call Dr. Bearden for more information) Case Team Name Relationship Phone Tamy Abebe(Responsible Staff) [phone] Continued Care and Services Coordination
--- OUTSIDE RECORDS SUMMARY | 2025-02-22 19:00 | XMS_ITS | Encounter Summary ---
Author Organization [employer] Address [address] [facility] 7t [place] [address] Care Team Providers Care Senior Economist Name Role Phone Tricia Bearden MD Primary Care Provider + Nestor Mares RN Unavailable [phone] Tamy Abebe Unavailable Encounter Details Date Type Department Care Team (Late st Contact Info) Description 02/21/2025 Telephone [facility] [address] [place] [address] Maral Ring [place] Social History Tobacco Use Types Packs/Day Years [...] encounter Miscellaneous Notes * Telephone Encounter - Maral Ring [place] - 02/21/2025 9:05 AM EDT Chart Prep Labs: done Images: ordered 11/02/24 Referrals: internal Vaccines due: Flu Screenings: not applicable Overdue care gaps: Not applicable documented in this encounter Plan of Treatment Upcoming Encounters Date Type Department Care Team (Late st Contact Info) Description 03/14/2025 1:00 PM EST Office Visit [facility] [address] [place] [address] Esthela Bourne, OD [address] [place] [address] 04/11/2025 1:00 PM EST Office Visit [facility] [address] [place], [place] [phone] documented as of this encounter Visit Diagnoses Not on filedocumented in this encounter Additional Health Concerns Assessment Noted Time PHQ-9 Depression Total Score: 2 01/06/20 25 9:28 AM EDT documented as of this encounter Care Teams Senior Economist Relationship Specialty Start Date End Date Tricia Bearden MD [address] [place] [address] PCP - General Family Medicine 03/27/21 Nestor Mares, RN [address] [place] [address] Registered Nurse Family Medicine 12/14/24 Tamy Abebe 12/14/24 Rell Weston Assistant District AttorneyExecutive Team Leader 07/10/23 documented as of this encounter
--- OUTSIDE RECORDS SUMMARY | 2025-02-22 19:00 | XMS_ITS | Encounter Summary ---
Author Organization [facility] Address [address] [facility] [address] [place] [phone] Phone Care Team Providers Care Tripe Scraper Name Role Phone Mariam Tran MD Primary Care Provider Tricia Bearden MD Primary Care Provider + Encounter Details Date Type Department Care Team (Late Contact Info) Description 04/16/2021 Transcribe Orders [facility] [address] [place] [address] Loni Madrid MD [address] [place] [address] [email or web address] Social History Tobacco Use Types Packs/Day Years [...] Upcoming Encounters Date Type Department Care Team ([facility] Contact Info) Description 02/24/2025 4:10 PM EDT Office Visit [facility] [address] [place] [phone] Katrin Mondragon MD, PhD [address] [place] [phone] [email or web address] documented as of this encounter Visit Diagnoses Not on filedocumented in this encounter Additional Health Concerns Assessment Noted Time PHQ-2 Depression Total Score: 1 04/11/20 21 9:53 AM EST documented as of this encounter Care Teams Tripe Scraper Relationship Specialty Start Date End Date Mariam Tran MD [address] [place] [address] [phone] PCP - General Pediatrics 01/15/17 10/19/23 Tricia Bearden MD [address] [place] [address] [place] [address] [phone] PCP - General Internal Medicine 10/20/23 documented as of this encounter Additional Source Comments The information contained in this document represents components of the legal health record. It is not the complete legal health record.[facility]
--- OUTSIDE RECORDS SUMMARY | 2025-02-22 19:00 | XMS_ITS | Encounter Summary ---
Author Organization [employer] Address [address] [facility] 7t [place] [address] Care Team Providers Care Human Resource Intern Name Role Phone Tricia Bearden MD Primary Care Provider + Nestor Mares RN Unavailable [phone] Tamy Abebe Unavailable Encounter Details Date Type Department Care Team (Late st Contact Info) Description 03/19/2023 Telephone [facility] [address] [place] [address] Tricia Bearden MD [address] [place], [place] [phone] Social History Tobacco Use Types Packs/Day Years [...] Description 03/14/2025 1:00 PM EST Office Visit [facility] [address] [place] [address] Esthela Bourne, OD [address] [place] [address] 04/11/2025 1:00 PM EST Office Visit [facility] [address] [place] [address] documented as of this encounter Visit Diagnoses Not on filedocumented in this encounter Care Teams Human Resource Intern Relationship Specialty Start Date End Date Tricia Bearden MD [address] [place] [address] PCP - General Family Medicine 03/27/21 Nestor Mares, RN [address] [place] [address] Registered Nurse Family Medicine 12/14/24 Tamy Abebe 12/14/24 Rell Wetson Whip SawyerByproducts Pump Operator 07/10/23 documented as of this encounter
--- OUTSIDE RECORDS SUMMARY | 2025-02-22 19:00 | XMS_ITS | Encounter Summary ---
Author Organization [employer] Address [address] [facility] 7t [place] [address] Care Team Providers Care Aircraft Skin Burnisher Name Role Phone Tricia Bearden MD Primary Care Provider + Nestor Mares RN Unavailable [phone] Tamy Abebe Unavailable Encounter Details Date Type Department Care Team (Late st Contact Info) Description 03/12/2024 Orders Only [facility] [address] [place], [place] [phone] Pham Russo NP [address] [place], [place] [phone] Social History Tobacco Use Types Packs/Day Years Used Date Smoking Tobacco: Never Passive Smoke Exposure: Never Smokeless Tobacco: Never Alcohol Use Standard Drinks/Week Comments Never 0 (1 standard drink = 0.6 oz pur e alcohol) PHQ-2 Answer Date Recorded Patient Health Questionnaire-2 Score 0 05/23/2022 Housing Stability Answer Date Recorded What is your housing situation today? I have yohsi dos santos 08/28/[address] you li ve. Do you have problems with any of the following? Pests such as bugs, ants, or mice 08/28/2023 Food Insecurity Answer Date Recorded Within the past 12 months, y ou worried that your food would run out before you got money to buy more: Never True 08/28/2023 Within the past 12 months,th e food you bought just didn't last and you didn't have enough money to get more: Never True Transportation Answer Date Recorded In the past 12 months, has l ack of transportation kept you from medical appts, meetings, work or from getting things needed for daily living? No 08/28/2023 Utilities Answer Date Recorded In the past [...] Description 03/14/2025 1:00 PM EST Office Visit [facility] [address] [place] [address] SteffenEsthela delgado, OD [address] [place] [address] 04/11/2025 1:00 PM EST Office Visit [facility] [address] [place] [address] documented as of this encounter Visit Diagnoses Not on filedocumented in this encounter Care Teams Aircraft Skin Burnisher Relationship Specialty Start Date End Date Tricia Bearden MD [address] [place] [address] PCP - General Family Medicine 03/27/21 Nestor Mares, RN [address] [place] [address] Registered Nurse Family Medicine 12/14/24 Tamy Abebe 12/14/24 Rell Weston Analytic ProgrammerHay Stacker Operator 07/10/23 documented as of this encounter
--- OUTSIDE RECORDS SUMMARY | 2025-02-22 19:00 | XMS_ITS | Encounter Summary ---
Author Organization [employer] Address [address] [facility] 7t [place] [address] Care Team Providers Care Checkerer Hand Name Role Phone Tricia Bearden MD Primary Care Provider + Nestor Mares RN Unavailable [phone] Tamy Abebe Unavailable Encounter Details Date Type Department Care Team (Late Contact Info) Description 08/16/2022 Abstract [facility] [address] [place] [address] Ken Taveras DMD Social History Tobacco Use Types Packs/Day Years [...] suspected to have Coronavirus/COVID-19? No / Unsure 08/16/2022 1:57 PM EDT documented as of this encounter Plan of Treatment Upcoming Encounters Date Type Department Care Team (Late Contact Info) Description 03/14/2025 1:00 PM EST Office Visit [facility] [address] [place] [address] Esthela Bourne, OD [address] [place] [address] 04/11/2025 1:00 PM EST Office Visit [facility] [address] [place] [address] documented as of this encounter Procedures Procedure Name Priority Date/Time Associated Diagnosis Comments 14 O SEALANT - PER TOOTH Routine 08/16/2022 12:00 AM EDT 30 O SEALANT - PER TOOTH Routine 08/16/2022 12:00 AM EDT 19 O SEALANT - PER TOOTH Routine 08/16/2022 12:00 AM EDT 15 O SEALANT - PER TOOTH Routine 08/16/2022 12:00 AM EDT 3 O SEALANT - PER TOOTH Routine 08/16/2022 12:00 AM EDT 2 O SEALANT - PER TOOTH Routine 08/16/2022 12:00 AM EDT 18 O COMPOSITE FILLING Routine 08/16/2022 12:00 AM EDT 31 O AMALGAM FILLING Routine 08/16/2022 12:00 AM EDT documented in this encounter Visit Diagnoses Not on filedocumented in this encounter Care Teams Checkerer Hand Relationship Specialty Start Date End Date Tricia Bearden MD [address] [place] [address] PCP - General Family Medicine 03/27/21 Nestor Mares, RN [address] [place] [address] Registered Nurse Family Medicine 12/14/24 Tamy Abebe 12/14/24 Rell Weston Popcorn VendorB2B Sales Consultant 07/10/23 documented as of this encounter
--- OUTSIDE RECORDS SUMMARY | 2025-02-22 19:00 | XMS_ITS | Encounter Summary ---
Author Organization [employer] Address [address] [facility] 7t [place] [address] Care Team Providers Care Sewer Line Repairer Name Role Phone Tricia Bearden MD Primary Care Provider + Nestor Mares RN Unavailable [phone] Tamy Abebe Unavailable Encounter Details Date Type Department Care Team (Late st Contact Info) Description 07/28/2023 Telephone [facility] [address] [place], [place] [phone] Tricia Bearden MD [address] [place], [place] [phone] Social History Tobacco Use Types Packs/Day Years [...] Description 03/14/2025 1:00 PM EST Office Visit [facility] [address] [place] [address] Esthela Bourne, OD [address] [place] [address] 04/11/2025 1:00 PM EST Office Visit [facility] [address] [place] [address] documented as of this encounter Visit Diagnoses Not on filedocumented in this encounter Care Teams Sewer Line Repairer Relationship Specialty Start Date End Date Tricia Bearden MD [address] [place] [address] PCP - General Family Medicine 03/27/21 Nestor Mares, RN [address] [place] [address] Registered Nurse Family Medicine 12/14/24 Tamy Abebe 12/14/24 Rell Weston Timber Treatment Plant OperatorDirect Marketing Coordinator 07/10/23 documented as of this encounter
--- OUTSIDE RECORDS SUMMARY | 2025-02-22 19:00 | XMS_ITS ---
Author Organization [employer] Address [address] [facility] 7 [place] [address] Care Team Providers Care Diversified Crops Supervisor Name Role Phone Tricia Bearden MD Primary Care Provider + Nestor Mares RN Unavailable [phone] Tamy Abebe Unavailable CM Complex Status:Enrolled (Active) Start date:12/14/2024 Enrollment date:01/04/2025 Enrollment reason:Referred by provider Overview Provider Referral- Patient's FIRE FIGHTERS DISPATCHER left recently, patient and current caregiver do not have much information re patient's medical care as her previous FIRE FIGHTERS DISPATCHER used to take her to all appts, please reach out to them and give her info to fu on home care (she's out of home svc) (Please call Dr. Bearden for more information) Case Team Name Relationship Phone Nestor Mares RN(Responsible Staff) Registered Gary hobson [phone] Continued Care and Services Coordination
--- OUTSIDE RECORDS SUMMARY | 2025-02-22 19:00 | XMS_ITS | Encounter Summary ---
Author Organization [employer] Address [address] [facility] 7t [place] [address] Care Team Providers Care Instructor Robotics Name Role Phone Tricia Bearden MD Primary Care Provider + Nestor Mares RN Unavailable [phone] Tamy Abebe Unavailable Encounter Details Date Type Department Care Team (Late st Contact Info) Description 01/05/2025 Results Follow-Up [facility] [address] [place] [address] Molly Marcial CNM [address] [place] [address] Pap Smear Social History Tobacco Use Types Packs/Day Years [...] the past 12 months, has t he [employer], [employer], oil or water company threatened to shut [...] AM EST documented as of this encounter Functional Status * Over the past 2 weeks, how often have you been bothered by any of the following problems? Question Answer Date of Assessment Author Patient Health Questionnaire-2 Score 0 12/11 9:28 AM Nestor Castrejon RN * Little interest or pleasure in doing things Answer Date of Assessment Author Not at all 01/05/2025 9:28 AM Nestor Castrejon RN * Feeling down, depressed, or hopeless Answer Date of Assessment Author Not at all 01/05/2025 9:28 AM Nestor Castrejon RN * Trouble falling or staying asleep, or sleeping too much Answer Date of Assessment Author Not at all 01/05/2025 9:28 AM Nestor Castrejon RN * Feeling tired or having little energy Answer Date of Assessment Author Several days 01/05/2025 9:28 AM Nestor Castrejon RN * Poor appetite or overeating Answer Date of Assessment Author Several days 01/05/2025 9:28 AM Nestor Castrejon RN * Feeling bad about yourself - or that you are a failure or have let yourself or your family down Answer Date of Assessment Author Not at all 01/05/2025 9:28 AM Nestor Castrejon RN * Trouble concentrating on things, such as reading the newspaper or watching television Answer Date of Assessment Author Not at all 01/05/2025 9:28 AM Nestor Castrejon RN * Moving or speaking so slowly that other people could have noticed? Or the opposite - being so fidgety or restless that you have been moving around a lot more than usual. Answer Date of Assessment Author Not at all 01/05/2025 9:28 AM Nestor Castrejon RN * Thoughts that you would be better off or hurting yourself in some way Answer Date of Assessment Author Not at all 01/05/2025 9:28 AM Nestor Castrejon RN * Patient Health Questionnaire-9 Score Answer Date of Assessment Author 2 01/05/2025 9:28 AM Nestor Castrejon RN * How difficult have these problems made it for you to do your work, take care of things at home, or get along with other people? Answer Date of Assessment Author Not difficult at all 01/05/2025 9:28 AM Nestor Bullock RN * Over the last 2 weeks, how often have you been bothered by any of the following problems? Question Answer Date of Assessment Author Feeling nervous, anxious, or on edge 0 12/11 9:33 AM Nestor Castrejon RN Not being able to stop or co ntrol worrying 0 01/05/2025 9:33 AM EDT Nestor Mares R N Worrying too much about diff erent things 0 01/05/2025 9:33 AM EDT Nestor Mares R N Trouble relaxing 0 01/05/2025 9:33 AM EDT Nestor Naylor RN Being so restless that it is hard to sit still 0 01/05/2025 9:33 AM EDT Nestor Mares R N Becoming easily annoyed or irritable 0 12/11 9:33 AM EDT Nestor Mares RN Feeling afraid as if somethi ng awful might happen 0 01/05/2025 9:33 AM EDT Nestor Mares R N JUAN A-7 Total Score 0 01/05/2025 9:33 AM EDT Nestor Mares RN * Suicidal Ideation Question Answer Date of Assessment Author 1. Wish to be (Lifetime) No 01/05/2025 9:32 AM EDT Nestor Mares RN 2. Non-Specific Active Suici solitario Thoughts (Lifetime) No 01/05/2025 9:32 AM EDT Nestor Mares R N documented as of this encounter Plan of Treatment Upcoming Encounters Date Type Department Care Team (Late st Contact Info) Description 03/14/2025 1:00 PM EST Office Visit [facility] [address] [place] [address] Steffen, Esthela, OD [address] [place] [address] 04/11/2025 1:00 PM EST Office Visit [facility] [address] [place] [address] documented as of this encounter Visit Diagnoses Not on filedocumented in this encounter Additional Health Concerns Assessment Noted Time PHQ-9 Depression Total Score: 2 01/06/20 9:28 AM EDT documented as of this encounter Care Teams Instructor Robotics Relationship Specialty Start Date End Date Tricia Bearden MD [address] [place] [address] PCP - General Family Medicine 03/27/21 Nestor Mares, RN [address] [place] [address] Registered Nurse Family Medicine 12/14/24 Tamy Abebe 12/14/24 Rell Weston Newspaper ReporterPearl Restorer 07/10/23 documented as of this encounter
--- OUTSIDE RECORDS SUMMARY | 2025-02-22 19:00 | XMS_ITS | Encounter Summary ---
Author Organization [employer] Address [address] [facility] 7t [place] [address] Care Team Providers Care Share Dairy Farmer Name Role Phone Tricia Bearden MD Primary Care Provider + Nestor Mares RN Unavailable [phone] Tamy Abebe Unavailable Encounter Details Date Type Department Care Team (Latest Contact Info) Description 02/22/2025 Travel Social History Tobacco Use Types Packs/Day Years [...] 03/14/2025 1:00 PM EST Office Visit [facility] [address] [place] [address] Esthela Bourne, OD [address] [place] [address] 04/11/2025 1:00 PM EST Office Visit [facility] [address] [place] [address] documented as of this encounter Visit Diagnoses Not on filedocumented in this encounter Additional Health Concerns Assessment Noted Time PHQ-9 Depression Total Score: 2 01/06/20 9:28 AM EDT documented as of this encounter Care Teams Share Dairy Farmer Relationship Specialty Start Date End Date Tricia Bearden MD [address] [place] [address] PCP - General Family Medicine 03/27/21 Nestor Mares, HIREN [address] [place] [address] Registered Nurse Family Medicine 12/14/24 Tamy Abebe 12/14/24 Rell Weston Interlocker MaintainerCoverer 07/10/23 documented as of this encounter
--- OUTSIDE RECORDS SUMMARY | 2025-02-22 19:00 | XMS_ITS | Encounter Summary ---
Author Organization [employer] Address [address] [facility] [address]t [place] [address] Care Team Providers Care Dowel Sander Operator Name Role Phone Tricia Bearden MD Primary Care Provider + Nestor Mares RN Unavailable [phone] Tamy Abebe Unavailable Encounter Details Date Type Department Care Team (Late st Contact Info) Description 07/08/2022 Orders Only [facility] [address] [place], [place] [phone] Tihs Finn MD [address] [place], [place] [phone] Bacterial vaginosis (Primary Dx) Social History Tobacco Use Types [...] Description 03/14/2025 1:00 PM EST Office Visit [facility] [address] [place] [address] Esthela Bourne, OD [address] [place] [address] 04/11/2025 1:00 PM EST Office Visit [facility] [address] [place] [address] documented as of this encounter Visit Diagnoses Diagnosis Bacterial vaginosis- Primary Unspecified vaginitis and vulvovaginitis documented in this encounter Care Teams Dowel Sander Operator Relationship Specialty Start Date End Date Tricia Bearden MD [address] [place] [address] PCP - General Family Medicine 03/27/21 Nestor Mares, HIREN [address] [place] [address] Registered Nurse Family Medicine 12/14/24 Tamy Abebe 12/14/24 Rell Weston Technical Service SpecialistOperating Systems Programmer 07/10/23 documented as of this encounter
--- OUTSIDE RECORDS SUMMARY | 2025-02-22 19:00 | XMS_ITS | Encounter Summary ---
Author Organization [facility] Address [address] [facility] [address] [place] [phone] Phone Care Team Providers Care Cad Technician Name Role Phone Mariam Tran MD Primary Care Provider Tricia Bearden MD Primary Care Provider + Encounter Details Date Type Department Care Team (Late st Contact Info) Description 02/20/2018 Procedure [facility] 55 [place] [address] Social History Tobacco Use Types Packs/Day Years [...] Care Team (Late st Contact Info) Description 02/24/2025 4:10 PM EDT Office Visit [facility] [place]UROLOGY [address] [place] [address] Katrin Mondragon MD, PhD [address] [place] [phone] [email or web address]. [email or web address] documented as of this encounter Visit Diagnoses Not on filedocumented in this encounter Care Teams Cad Technician Relationship Specialty Start Date End Date Mariam Tran MD 230 [place] [address] PCP - General Pediatrics 01/15/17 10/19/23 Tricia Bearden MD [address] [facility] [address] [place] [address] PCP - General Internal Medicine 10/20/23 documented as of this encounter Additional Source Comments The information contained in this document represents components of the legal health record. It is not the complete legal health record.[facility]
--- OUTSIDE RECORDS SUMMARY | 2025-02-22 19:00 | XMS_ITS | Encounter Summary ---
Author Organization [facility] Address [address] [facility] ([place], [place]) [address] [place] [address] Phone Care Team Providers Care Cigarette Machine Operator Name Role Phone Mariam Tran MD Primary Care Provider Tricia Bearden MD Primary Care Provider + Encounter Details Date Type Department Care Team (Late st Contact Info) Description 07/28/2018 Telephone [facility] Department of Neurology [address] [place] [address], 8th Floor, [address] [place] [address] Katrin Mondragon MD, PhD [address] [place] [phone] [email or web address] Social History Tobacco Use Types Packs/Day Years Used Date Smoking Tobacco: Never Smokeless Tobacco: Never Comments Unknown Sex and Gender Information Value [...] Description 02/24/2025 4:10 PM EDT Office Visit [facility] DEPARTMENT OF NEUROLOGY [address] [place] [address] Katrin Mondragon MD, PhD [address] [place] [phone] [email or web address]. [email or web address] documented as of this encounter Visit Diagnoses Not on filedocumented in this encounter Care Teams Cigarette Machine Operator Relationship Specialty Start Date End Date Mariam Tran MD 230 [place], [place] [phone] PCP - General Pediatrics 01/15/17 10/19/23 Tricia Bearden MD 230 [facility] [address] [place] [address] PCP - General Internal Medicine 10/20/23 documented as of this encounter Additional Source Comments The information contained in this document represents components of the legal health record. It is not the complete legal health record.[facility]
--- OUTSIDE RECORDS SUMMARY | 2025-02-22 19:00 | XMS_ITS | Encounter Summary ---
Author Organization [facility] Address [address] [facility] [address] [place] [address] Phone Care Team Providers Care Reading Interventionist Name Role Phone Mariam Tran MD Primary Care Provider Tricia Bearden MD Primary Care Provider + Encounter Details Date Type Department Care Team (Latest Contact Info) Description 07/31/2017 Transcribe Orders [facility] [address] [address] Salas Washington MD [address] [place] [phone] [email or web address] Brain condition (Primary Dx) Social History Tobacco Use Types [...] Description 02/24/2025 4:10 PM EDT Office Visit [facility] DEPARTMENT OF NEUROLOGY [address] [place] [address] Katrin Mondragon MD, PhD [address] [place] [phone] [email or web address]. [email or web address] documented as of this encounter Results * Miscellaneous lab test (07/31/2017 4:01 PM EDT) TESTS REQUESTED INDER TEST 696 COMP ATAXIA EVAL AND TEST [address] CEREBELLAR DEGENERATION [facility] Comment:Corrected on 07/31 A T 1719: previously reported as NEOCEREBELLAR SPECIMEN/TUBE TYPE ATAXIA PARANEOPLASTIC PROFILE TO INDER, SEE REPORT [facility] REQUEST RECEIVED Request received. A separate order for the requested test will be generated by the laboratory. [facility] 07/31/2017 4:01 PM EDT 07/31/2017 5:15 PM EDT us Salas Washington MD LAB BLOOD ORDERABLES Edited Re sult - Final [address] documented in this encounter Visit Diagnoses Diagnosis Brain condition- Primary Unspecified condition of brain documented in this encounter Care Teams Reading Interventionist Relationship Specialty Start Date End Date Mariam Tran MD 230 [place] [address] PCP - General Pediatrics 01/15/17 10/19/23 Tricia Bearden MD [address] [place] [address] [address] [place] [phone] PCP - General Internal Medicine 10/20/23 documented as of this encounter Additional Source Comments The information contained in this document represents components of the legal health record. It is not the complete legal health record.[facility]
[2025-02-22 22:00] LABS: Bacterial Vaginosis PCR POSITIVE (Negative); Candida Group PCR NOT DETECTED (Not Detect); Candida glab krusei PCR NOT DETECTED (Not Detect); Trichomonas vaginalis PCR NOT DETECTED (Not Detect)
== END 2025-02-22 18:55 | disposition home or self-care (01) ==
LOC: HO.HHCLNP 18:54
PROVIDERS: Visit Provider Advanced Practice Midwife
DX: N89.8 Other specified noninflammatory disorders of vagina (principal)
CPT/HCPCS: 81515

== ENCOUNTER 2025-05-03 17:37 | Outpatient (REF) | payer MEDICAID, SELFPAY ==
--- OUTSIDE RECORDS SUMMARY | 2025-05-03 14:00 | XMS_ITS | Encounter Summary ---
Author Organization [employer] Address 75 [facility] 7 [place] [address] Care Team Providers Care Chip Crusher Operator Name Role Phone Tricia Bearden MD Primary Care Provider + Nestor Mares RN Unavailable [phone] Tamy Abebe Unavailable Encounter Details Date Type Department Care Team (Late st Contact Info) Description 05/03/2025 2:00 PM EST Office Visit [facility] MEDICINE [address] [place], [place] [phone] Molly Marcial CNM [address] [place], [place] [phone] Pelvic pain (Primary Dx); Vaginal discharge Social History Tobacco Use Types Packs/Day Years [...] Access Q2 Not on file 05/18/2024 Comments No Intention Date Recorded No desire to become (finding) 1 07/04/2024 Sex and Gender Information Value Date Recorded Sex Assigned at Female 03/11/2022 10:31 AM EDT Legal Sex Female 10:31 AM EDT Gender Identity Female 03/11/2022 10:31 AM EDT Sexual Orientation Straight 03/15/2024 9: 29 AM EST documented as of this encounter Last Filed Vital Signs Vital Sign Reading Time Taken Comments Blood Pressure 100/68 05/03/2025 2:15 PM EST Pulse 88 05/03/2025 2:15 PM EST Temperature 37.1 C (98.7 F) 05/03/2025 2:15 PM EST Respiratory Rate 15 05/03/2025 2:15 PM EST Oxygen Saturation 98% 05/03/2025 2:15 PM EST Inhaled Oxygen Concentration - - Weight 41.1 kg (90 lb 9.6 oz) 05/03/2025 2:15 PM EST Height 144 cm (4' 8.69 ) 05/03/2025 2:15 PM EST Body Mass Index 19.82 05/03/2025 2:15 PM EST documented in this encounter Progress Notes * Molly Marcial CNM - 05/03/2025 2:00 PM EST Subjective Patient ID: Kelsi Martinez??n Anabella Robbins is a 24 y.o. female who presents for pelvic pain Noted intermittent LLQ pain since completing treatment for bacterial vaginosis. Didn't use suppressive MetroGel. Last noted pain about 2 weeks ago. Not sexually active in the past year. Grandmother in for visit with Kelsi's consent. Pap NIL., Gonorrhea/Chlamydia/trichomonas neg 12/2024. History of bacterial vaginosis, treated 02/2024, 10/2024, 02/2025. Pelvic ultrasound ordered 10/2024, not done. Pelvic exam by ANTHONY Cunha, under my supervision. LMP around 04/17, occasionally skips a month. Acute Neurological Problem This is a chronic problem. Pertinent negatives include no abdominal pain, auditory change, aura, back pain, bladder incontinence, bowel incontinence, chest pain, confusion, diaphoresis, dizziness, fatigue, fever, headaches, light- headedness, nausea, neck pain, palpitations, shortness of breath, vertigo or vomiting. Review of Systems Constitutional: Negative for diaphoresis, fatigue and fever. Respiratory: Negative for shortness of breath. Cardiovascular: Negative for chest pain and palpitations. Gastrointestinal: Negative for abdominal pain, bowel incontinence, constipation, diarrhea, nausea and vomiting. Genitourinary: Positive for pelvic pain. Negative for bladder incontinence, dysuria, hematuria, menstrual problem and vaginal pain. Musculoskeletal: Negative for back pain and neck pain. Neurological: Negative for dizziness, vertigo, light-headedness and headaches. Psychiatric/Behavioral: Negative for confusion. Objective BP 100/68 (BP Location: Left arm, Patient Position: Sitting, BP Cuff Size: Adult) Pulse 88 Temp98.7 ??F (37.1 ??C) (Oral) Resp 15 Ht 4' 8.69 (1.44 m) Wt 90 lb 9.6 oz (41.1 kg) SpO2 98% BMI 19.82 kg/m?? Physical Exam Roll On Worker present: Molly Marcial. Genitourinary: General: Normal vulva. Labia: Right: No rash, tenderness, lesion or injury. Left: No rash, tenderness, lesion or injury. Vagina: No signs of injury and foreign body. Vaginal discharge present. No erythema, tenderness, bleeding, lesions or prolapsed vaginal singleton. Cervix: Normal. No cervical motion tenderness, discharge, friability, lesion, erythema, cervical bleeding or eversion. Uterus: Normal. Not enlarged and not tender. Adnexa: Right: No mass, tenderness or fullness. Left: No mass, tenderness or fullness. Assessment/Plan Diagnoses and all orders for this visit: Pelvic pain Benign exam today. Pain resolved. Will send bacterial vaginosis swab, treat as indicated. For pelvic ultrasound if pain recurs (previously ordered earlier this year). Vaginal discharge - Bacterial Vaginosis Panel Will send bacterial vaginosis swab and treat positive results. Will re-educate re: suppressive MetroGel after treatment if bacterial vaginosis noted today. Report if no menses at least every two months. documented in this encounter Plan of Treatment Upcoming Encounters Date Type Department Care Team (Late st Contact Info) Description 10/12/2025 1:45 PM EDT Office Visit [facility] PEDIATRIC DENTAL [address] [place] [address] Eva Payne Scheduled Orders Name Type Priority Associated Diagnoses Orde r Schedule Bacterial Vaginosis Panel Microbiology Routine Vaginal discharge Ordered: 05/03/2025 documented as of this encounter Visit Diagnoses Diagnosis Pelvic pain- Primary Vaginal discharge Leukorrhea, not specified as infective documented in this encounter Additional Health Concerns Assessment Noted Time PHQ-9 Depression Total Score: 2 01/06/20 25 9:28 AM EDT documented as of this encounter Care Teams Chip Crusher Operator Relationship Specialty Start Date End Date rTicia Bearden MD 230 [place] [address] PCP - General Family Medicine 03/27/21 Nestor Mares, RN [address] [place] [address] Registered Nurse Family Medicine 12/14/24 Tamy Abebe 12/14/24 Rell Weston Tariff CompilerBusiness Services Sales Representative 07/10/23 documented as of this encounter
--- OUTSIDE RECORDS SUMMARY | 2025-05-03 17:41 | XMS_ITS | Encounter Summary ---
Author Organization [employer] Address 75 [facility] 7 [place] [address] Care Team Providers Care School Psychology Specialist Name Role Phone Tricia Bearden MD Primary Care Provider + Nestor Mares RN Unavailable [phone] Tamy Abebe Unavailable Encounter Details Date Type Department Care Team (Late st Contact Info) Description 03/19/2023 Telephone [facility] MEDICINE [address] [place] [address] Tricia Bearden MD [address] [place] [address] Social History Tobacco Use Types Packs/Day Years [...] Description 10/12/2025 1:45 PM EDT Office Visit [facility] PEDIATRIC DENTAL [address] [place] [address] Eva Payne documented as of this encounter Visit Diagnoses Not on filedocumented in this encounter Care Teams School Psychology Specialist Relationship Specialty Start Date End Date Tricia Bearden MD [address] [place] [address] PCP - General Family Medicine 03/27/21 Nestor Mares, RN [address] [place] [address] Registered Nurse Family Medicine 12/14/24 Tamy Abebe 12/14/24 Rell Weston Technician Plant And MaintenanceBurlap Worker 07/10/23 documented as of this encounter
--- OUTSIDE RECORDS SUMMARY | 2025-05-03 17:41 | XMS_ITS | Encounter Summary ---
Author Organization [employer] Address 75 [facility] 7t [place] [address] Care Team Providers Care Car Builder Name Role Phone Tricia Bearden MD Primary Care Provider + Nestor Mares RN Unavailable [phone] Tamy Abebe Unavailable Encounter Details Date Type Department Care Team (Late st Contact Info) Description 09/10/2022 Orders Only [facility] MED & PEDS [address] [place] [address] Jody Foote LPN Social History Tobacco Use [...] Description 10/12/2025 1:45 PM EDT Office Visit [facility] PEDIATRIC DENTAL [address] [place] [address] Eva Payne documented as of this encounter Visit Diagnoses Not on filedocumented in this encounter Care Teams Car Builder Relationship Specialty Start Date End Date Tricia Bearden MD 230 [place] [address] PCP - General Family Medicine 03/27/21 Nestor Mares, HIREN [address] [place] [address] Registered Nurse Family Medicine 12/14/24 Tamy Abebe 12/14/24 Rell Weston Bridal Stylist Sales ConsultantLiquefier 07/10/23 documented as of this encounter
--- OUTSIDE RECORDS SUMMARY | 2025-05-03 17:41 | XMS_ITS | Encounter Summary ---
Author Organization [facility] Address [address] [facility] [address] [place] [address] Phone Care Team Providers Care Manufacturing Recruiter Name Role Phone Marima Tran MD Primary Care Provider Tricia Bearden MD Primary Care Provider + Encounter Details Date Type Department Care Team (Late st Contact Info) Description 07/28/2018 Telephone [facility] Behavioral [facility]rology [facility] [address] [facility], 8th Floor, [address] [place] [address] Katrin Mondragon MD, PhD [address] [place] [phone] [email or web address] Social History Tobacco Use Types Packs/Day Years [...] Care Team (Late st Contact Info) Description 06/30/2025 12:30 PM EST Procedure visit [facility] Neurology Neuromuscular Clinic [address] [facility], [address] [place] [address] Sheri Ac MD, PhD 55 [place] [address] [email or web address] documented as of this encounter Visit Diagnoses Not on filedocumented in this encounter Care Teams Manufacturing Recruiter Relationship Specialty Start Date End Date Mariam Tran MD [address] [place] [phone] PCP - General Pediatrics 01/15/17 10/19/23 Tricia Bearden MD [address] [place] [address] [address] [place] [address] PCP - General Internal Medicine 10/20/23 documented as of this encounter Additional Source Comments The information contained in this document represents components of the legal health record. It is not the complete legal health record.[facility]
--- OUTSIDE RECORDS SUMMARY | 2025-05-03 17:41 | XMS_ITS | Encounter Summary ---
Author Organization [facility] Address [address] [facility] [address] [place] [address] Phone Care Team Providers Care Tax Services Specialist Name Role Phone Mariam Tran MD Primary Care Provider Tricia Bearden MD Primary Care Provider + Reason for Referral * Consultation (Routine) - Closed Specialty Diagnoses / Procedures Referred By Tracey castillo Referred To Contact Neurology Diagnoses Cerebellar ataxia Mariam Tran MD Phone: tel: Katrin Mondragon MD, PhD Phone: tel: fax: mailto:[email or web address] Referral ID Status Reason Start Date Expiration Date Visits Re quested Visits Authorized [id number] Closed 07/03/2017 07/03/2018 6 6 Scheduling Instructions Request for ataxia clinic, pt is 16 years old Encounter Details Date Type Department Care Team (Late st Contact Info) Description 03/05/2017 Transcribe Orders [facility] Neurology Clinic 55 [facility], 8th Floor, [address] [place] [address] Mariam Tran MD 230 [place] [address] Cerebellar ataxia (Primary Dx) Social History Tobacco [...] Description 06/30/2025 12:30 PM EST Procedure visit [facility] Neurology Neuromuscular Clinic [address] [facility], [address] [place] [address] Sheri Ac MD, PhD 55 [place] [address] [email or web address] Scheduled Referrals Name Type Priority Associated Diagnoses Order Schedule Ambulatory referral to [facility] Neurology Outpatient Referral Routine Cerebellar ataxia Ordered: 03/05/2017 documented as of this encounter Visit Diagnoses Diagnosis Cerebellar ataxia- Primary Other cerebellar ataxia documented in this encounter Care Teams Tax Services Specialist Relationship Specialty Start Date End Date Mariam Tran MD 230 [place] [address] PCP - General Pediatrics 01/15/17 10/19/23 Tricia Bearden MD 230 [facility] [address] [place] [phone] PCP - General Internal Medicine 10/20/23 documented as of this encounter Additional Source Comments The information contained in this document represents components of the legal health record. It is not the complete legal health record.[facility]
--- OUTSIDE RECORDS SUMMARY | 2025-05-03 17:41 | XMS_ITS | Encounter Summary ---
Author Organization [facility] Address [address] [facility] [address] [place] [address] Phone Care Team Providers Care Victim Witness Administrator Name Role Phone Mariam Tran MD Primary Care Provider Tricia Bearden MD Primary Care Provider + Encounter Details Date Type Department Care Team (Late st Contact Info) Description 01/09/2022 Telephone [facility] Psychiatry Clinic [address] [facility], [address] [place] [address] Anna Lamas MD, PhD [address] [place] [phone] [email or web address] Social History Tobacco Use [...] Description 06/30/2025 12:30 PM EST Procedure visit [facility] Neurology Neuromuscular Clinic 52 [facility] [address] [place] [address] Sheri Ac MD, PhD [address] [facility] [place] [address] [email or web address] documented as of this encounter Visit Diagnoses Not on filedocumented in this encounter Additional Health Concerns Assessment Noted Time PHQ-2 Depression Total Score: 1 01/10/20 22 12:14 PM EDT documented as of this encounter Care Teams Victim Witness Administrator Relationship Specialty Start Date End Date Mariam Tran MD [address] [place] [address] [phone] PCP - General Pediatrics 01/15/17 10/19/23 Tricia Bearden MD [address] [place] [address] [place] [phone] PCP - General Internal Medicine 10/20/23 documented as of this encounter Additional Source Comments The information contained in this document represents components of the legal health record. It is not the complete legal health record.[facility]
--- OUTSIDE RECORDS SUMMARY | 2025-05-03 17:41 | XMS_ITS | Encounter Summary ---
Author Organization [employer] Address 75 [facility] 7 [place] [address] Care Team Providers Care Inventory Control Analyst Name Role Phone Tricia Bearden MD Primary Care Provider + Nestor Mares RN Unavailable [phone] Tamy Abebe Unavailable Encounter Details Date Type Department Care Team (Late st Contact Info) Description 07/10/2022 Orders Only [facility] MEDICINE [address] [place] [address] Tricia Bearden MD [address] [place] [address] Bacterial vaginitis (Primary Dx) Social History Tobacco [...] Upcoming Encounters Date Type Department Care Team ([facility] st Contact Info) Description 10/12/2025 1:45 PM EDT Office Visit [facility] PEDIATRIC DENTAL [address] [place] [address] Eva Payne documented as of this encounter Visit Diagnoses Diagnosis Bacterial vaginitis- Primary Unspecified vaginitis and vulvovaginitis documented in this encounter Care Teams Inventory Control Analyst Relationship Specialty Start Date End Date Tricia Bearden MD [address] [place] [address] PCP - General Family Medicine 03/27/21 Nestor Mares, HIREN [address] [place] [address] Registered Nurse Family Medicine 12/14/24 Tamy Abebe 12/14/24 Rell Weston Hydraulic Press TenderBinding Nicker 07/10/23 documented as of this encounter
--- OUTSIDE RECORDS SUMMARY | 2025-05-03 17:41 | XMS_ITS | Encounter Summary ---
Author Organization [employer] [facility] Address 399 [facility] [address] [place] [phone] Phone Care Team Providers Care Tube Skiver Name Role Phone Mariam Tran MD Primary Care Provider Tricia Bearden MD Primary Care Provider + Encounter Details Date Type Department Care Team (Late st Contact Info) Description 02/20/2018 Procedure Pass [facility] General Imaging [address] [place] [address] Social History Tobacco Use Types Packs/Day Years [...] Description 06/30/2025 12:30 PM EST Procedure visit [facility] Neurology Neuromuscular Clinic [address] [facility], [address] [place] [address] Sheri Ac MD, PhD 55 [place] [address] [email or web address] documented as of this encounter Visit Diagnoses Not on filedocumented in this encounter Care Teams Tube Skiver Relationship Specialty Start Date End Date Mariam Tran MD 230 [place], [place] [phone] PCP - General Pediatrics 01/15/17 10/19/23 Tricia Bearden MD 230 [facility] [address] [place] [phone] PCP - General Internal Medicine 10/20/23 documented as of this encounter Additional Source Comments The information contained in this document represents components of the legal health record. It is not the complete legal health record.[facility]
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
--- OUTSIDE RECORDS SUMMARY | 2025-05-03 17:41 | XMS_ITS | Encounter Summary ---
Author Organization [facility] Address [address] [facility] [address] [place] [address] Phone Care Team Providers Care Residential Mortgage Manager Name Role Phone Mariam Tran MD Primary Care Provider Tricia Bearden MD Primary Care Provider + Encounter Details Date Type Department Care Team (Latest Contact Info) Description 07/31/2017 Transcribe Orders [facility] [address] [address] Salas Washington MD [address] [place] [phone] [email or web address] Brain condition (Primary Dx) Social History Tobacco [...] Description 06/30/2025 12:30 PM EST Procedure visit [facility] [address] [facility], [address] [place] [address] Sheri Ac MD, PhD [address] [place] [address] [email or web address] documented as of this encounter Results * Miscellaneous lab test (07/31/2017 4:01 PM EDT) TESTS REQUESTED INDER TEST 696 COMP ATAXIA EVAL AND TEST 438 BROOKE CEREBELLAR DEGENERATION [facility] Comment:Corrected on 07/31 A T 1719: previously reported as NEOCEREBELLAR SPECIMEN/TUBE TYPE ATAXIA PARANEOPLASTIC PROFILE TO INDER, SEE REPORT [facility] REQUEST RECEIVED Request received. A separate order for the requested test will be generated by the laboratory. [facility] 07/31/2017 4:01 PM EDT 07/31/2017 5:15 PM EDT us Salas Washington MD LAB BLOOD ORDERABLES [place] [address], [facility] documented in this encounter Visit Diagnoses Diagnosis Brain condition- Primary Unspecified condition of brain documented in this encounter Care Teams Residential Mortgage Manager Relationship Specialty Start Date End Date Mariam Tran MD [address] [place] [address] PCP - General Pediatrics 01/15/17 10/19/23 Tricia Bearden MD [address] [place] [address] [address] [place] [phone] PCP - General Internal Medicine 10/20/23 documented as of this encounter Additional Source Comments The information contained in this document represents components of the legal health record. It is not the complete legal health record.[facility]
--- OUTSIDE RECORDS SUMMARY | 2025-05-03 17:41 | XMS_ITS | Encounter Summary ---
Author Organization [employer] Address [address] [facility] 7 [place] [address] Care Team Providers Care Hog Feeder Name Role Phone Tricia Bearden MD Primary Care Provider + Nestor Mares RN Unavailable [phone] Tamy Abebe Unavailable Encounter Details Date Type Department Care Team (Late st Contact Info) Description 03/12/2024 Orders Only [facility] MEDICINE [address] [place] [address] Pham Russo NP [address] [place] [address] Social History Tobacco Use Types Packs/Day Years Used Date Smoking Tobacco: Never Passive Smoke Exposure: Never Smokeless Tobacco: Never Alcohol Use Standard Drinks/Week Comments Never 0 (1 standard drink = 0.6 oz pur e alcohol) PHQ-2 Answer Date Recorded Patient Health Questionnaire-2 Score 0 05/23/2022 Housing Stability Answer Date Recorded What is your housing situation today? I have yoshi sing 08/28/[address] you li [...] Description 10/12/2025 1:45 PM EDT Office Visit [facility] PEDIATRIC DENTAL [address] [place] [address] Eva Payne documented as of this encounter Visit Diagnoses Not on filedocumented in this encounter Care Teams Hog Feeder Relationship Specialty Start Date End Date Tricia Bearden MD [address] [place] [address] PCP - General Family Medicine 03/27/21 Nestor Mares, RN [address] [place] [address] Registered Nurse Family Medicine 12/14/24 Tamy Abebe 12/14/24 Rell Weston Livestock FeederNurse Aide 07/10/23 documented as of this encounter
--- OUTSIDE RECORDS SUMMARY | 2025-05-03 17:41 | XMS_ITS | Encounter Summary ---
Author Organization [employer] Address [address] [facility] 7t [place] [address] Care Team Providers Care Educational Consultant Name Role Phone Tricia Beraden MD Primary Care Provider + Nestor Mares RN Unavailable [phone] Tamy Abebe Unavailable Encounter Details Date Type Department Care Team (Late st Contact Info) Description 08/16/2022 Abstract [facility] PEDIATRIC DENTAL [address] [place] [address] Ken Taveras DMD Social History Tobacco Use [...] Description 10/12/2025 1:45 PM EDT Office Visit [facility] PEDIAT[facility]IC DENTAL [address] [place] [address] Eva Payne documented as of this encounter Procedures Procedure [...] on filedocumented in this encounter Care Teams Educational Consultant Relationship Specialty Start Date End Date Tricia Bearden MD [address] [place] [address] PCP - General Family Medicine 03/27/21 Nestor Mares, RN [address] [place] [address] Registered Nurse Family Medicine 12/14/24 Tamy Abebe 12/14/[address] GraderWarranty Clerk 07/10/23 documented as of this encounter
--- OUTSIDE RECORDS SUMMARY | 2025-05-03 17:41 | XMS_ITS | Clinical Summary ---
Author Organization [facility] Address [address] [address] Phone Care Team Providers Care Applications Packager Name Role Phone Tricia Bearden MD Primary [...] Encounters Date Type Department Care Team Description 03/31/2025 3:30 PM EST Procedure visit [facility] Neu[facility] Neuromuscular [facility] [address] [facility], [address] [place] [address] Sheri Ac MD, PhD Cervical dystonia (Primary Dx) 03/10/2025 Telephone [facility]rology Movement Disorder [facility] [address] [facility], 8th Floor, [address] [place] [address] Katrin Mondragon MD, PhD Medication Prior Authorization (dalfampridine (AMPYRA)) 03/04/2025 Telephone [facility] Disorder [facility] [address] [facility], 8th Floor, [address] [place] [address] Alida Wu RN 03/01/2025 Telephone [facility] Disorder [facility] [address] [facility], 8th Floor, [address] [place] [address] Alida Wu RN 02/23/2025 Orders Only [facility] Disorder [facility] [address] [facility], 8th Floor, [address] [place] [address] Alida Wu RN Cerebellar ataxia (Primary Dx) from Last 3 Months Social History Tobacco [...] Description 06/30/2025 12:30 PM EST Procedure visit [facility] Neuromuscular Clinic [address] [place] [address], [address] [place] [address] Sheri Ac MD, PhD [address] [place] [address] [email or web address] Health Maintenance Due Date Last Done Comments HPV VACCINES (1 - 3-dose series) 2015 CHLAMYDIA SCREENING 2016 HEPATITIS C SCREENING 2018 HIV ONE-TIME SCREENING (18-6 5 YEARS) 2018 HEPATITIS A VACCINES (2 of 2 - 2-dose series) 12/10/2018 06/12/2018 INFLUENZA VACCINE (#1) 2024 , 06/12/2018 COVID-19 VACCINE (2 - 2024-2 6 [...] topic Medical Devices Not on file Insurance [address] [place] [address] [employer] [place] [address] [employer]3 ACO C3 ACO C3 ACO [employer]3 [employer]3 [employer]3 ACO C3 ACO [employer]3 ACO C3 ACO C3 ACO C3 ACO C3 ACO C3 ACO [employer] A[employer] Care Teams Applications Packager Relationship Specialty Start Date End Date Tricia Bearden MD [address] [place] [address] [address] [place] [phone] PCP - General Internal Medicine 10/20/23 Additional Source Comments The information contained in this document represents components of the legal health record. It is not the complete legal health record.[facility]
--- OUTSIDE RECORDS SUMMARY | 2025-05-03 17:41 | XMS_ITS | Encounter Summary ---
Author Organization [employer] Address [address] [facility] 7t [place] [address] Care Team Providers Care Reed Or Wind Instrument Tuner Name Role Phone Tricia Bearden MD Primary Care Provider + Nestor Mares RN Unavailable [phone] Tamy Abebe Unavailable Encounter Details Date Type Department Care Team (Latest Contact Info) Description 04/28/2025 Travel Social History Tobacco Use Types Packs/Day [...] Q2 Not on file 05/18/2024 Comments No Sex and Gender Information Value [...] Description 10/12/2025 1:45 PM EDT Office Visit [facility] [address] [place] [address] Eva Payne documented as of this encounter Visit Diagnoses Not on filedocumented in this encounter Additional Health Concerns Assessment Noted Time PHQ-9 Depression Total Score: 2 01/06/20 25 9:28 AM EDT documented as of this encounter Care Teams Reed Or Wind Instrument Tuner Relationship Specialty Start Date End Date Tricia Bearden MD [address] [place] [address] PCP - General Family Medicine 03/27/21 Nestor Mares, RN [address] [place] [address] Registered Nurse Family Medicine 12/14/24 Tamy Abebe 12/14/24 Rell Weston Appellate ConfereeToggle Press Folder And Feeder 07/10/23 documented as of this encounter
--- OUTSIDE RECORDS SUMMARY | 2025-05-03 17:41 | XMS_ITS | Encounter Summary ---
Author Organization [facility] Address [address] [facility] [address] [place] [address] Phone Care Team Providers Care Brush Clearing Laborer Name Role Phone Mariam Tran MD Primary Care Provider Tricia Bearden MD Primary Care Provider + Encounter Details Date Type Department Care Team (Late st Contact Info) Description 04/16/2021 Transcribe Orders [facility] [address] [place], [place] [phone] Loni Madrid MD [address] [place] [phone] [email or web address] Social History Tobacco Use Types Packs/Day Years [...] Description 06/30/2025 12:30 PM EST Procedure visit [facility] Neuromuscular Clinic [address] [place] [address], [address] [place] [address] Sheri Ac MD, PhD [address] [place] [address] [email or web address] documented as of this encounter Visit Diagnoses Not on filedocumented in this encounter Additional Health Concerns Assessment Noted Time PHQ-2 Depression Total Score: 1 04/11/20 21 9:53 AM EST documented as of this encounter Care Teams Brush Clearing Laborer Relationship Specialty Start Date End Date Mariam Tran MD [address] [place] [phone] PCP - General Pediatrics 01/15/17 10/19/23 Tricia Bearden MD [address] [place] [address] [place] [phone] PCP - General Internal Medicine 10/20/23 documented as of this encounter Additional Source Comments The information contained in this document represents components of the legal health record. It is not the complete legal health record.[facility]
--- OUTSIDE RECORDS SUMMARY | 2025-05-03 17:41 | XMS_ITS | Encounter Summary ---
Author Organization [employer] Address [address] [facility] 7t [place] [address] Care Team Providers Care Air Value Tester Name Role Phone Tricia Bearden MD Primary Care Provider + Nestor Mares RN Unavailable [phone] Taym Abebe Unavailable Encounter Details Date Type Department Care Team (Latest Contact Info) Description 05/03/2025 Travel Social History Tobacco Use Types Packs/Day [...] 10/12/2025 1:45 PM EDT Office Visit [facility] [address] [place] [address] Eva Payne documented as of this encounter Visit Diagnoses Not on filedocumented in this encounter Additional Health Concerns Assessment Noted Time PHQ-9 Depression Total Score: 2 01/06/20 25 9:28 AM EDT documented as of this encounter Care Teams Air Value Tester Relationship Specialty Start Date End Date Tricia Bearden MD [address] [place] [address] PCP - General Family Medicine 03/27/21 Nestor Mares, RN [address] [place] [phone] Registered Nurse Family Medicine 12/14/24 Tamy Abebe 12/14/24 Rell Weston Proposal Review AnalystEmergency Dispatcher 07/10/23 documented as of this encounter
--- OUTSIDE RECORDS SUMMARY | 2025-05-03 17:41 | XMS_ITS | Clinical Summary ---
Author Organization [facility] Address [address] [place] [address] Phone Care Team Providers Care Public Relations Manager Name Role Phone Tricia Bearden MD Primary Care Provider Encounters Date Type Department Care Team Description 03/25/2025 1:00 PM EST Evaluation [facility] [address] [phone] Family Medicine, Physician, Anna Coe, OT Cerebellar ataxia (CMS/HCC V24, CMS/HCC V28) from Last 3 Months Social History Tobacco Use Types Packs/Day Years Used Date Smoking Tobacco: Never Assessed Comments Unknown Sex and Gender Information Value Date Recorded Sex Assigned at Female 03/16/2025 10:12 AM EST Legal Sex Female 1:10 PM EST Gender Identity Female 03/16/2025 10:12 AM EST Sexual Orientation Straight 03/16/2025 10 :12 AM EST Plan of Treatment Health Maintenance Due Date Last Done Comments Gonorrhea/Chlamydia Screening 2000 Depression Screening 05/12/2024 COVID-19 Vaccine ( season) 2025 03/11/2024, 05/30/2021, 08/07/2020 Hepatitis C Screening 03/15/2025 Social Influencers of Health Screening 03/15/2025 Cervical Cancer Screening: Pap Smear 12/30/2027 12/29/2024 DTaP,Tdap,and Td Vaccines (8 - Td or Tdap) 04/12/2034 04/12/2024, 2013, 05/10/2005, Additional history exists RSV Immunization Adult Patients (1 - 1-dose 75+ series) 2075 HIB Vaccines Completed 01/31/2002, 11/09, 2000 IPV Vaccines Completed 08/28/2004, 05/13, 2000, Additional history exists MMR Vaccines Completed 08/28/2004, 05/29/2001 Varicella Vaccines Completed 2013, 03/20/2004 HPV Vaccines Completed 01/08/2014, 07/10, 2013 Meningococcal ACWY Vaccine Completed 08/19/2016, Hepatitis A Vaccines Completed 06/12/2018, 08/20/19 17 HIV Screening Completed 08/11/2020 Hepatitis B Vaccines Completed 07/22/2024, 03/11/2024, 01/21/2024, Additional history exists Influenza Vaccine Completed 03/14/2025, , 06/13/2021, Additional history exists Meningococcal B Vaccine Aged Out No l onger eligible based on patient's age to complete this topic Pneumococcal Vaccine: Pediatrics (0 to 5 Years) and At-Risk Patients (6 to 49 Years) Aged Out No longer eligible based on patient's age to complete this topic RSV Immunization Patients Under 20 months Aged Out No longer eligible based on patient's age to complete this topic Insurance MEDICAID - [place] Care Teams Public Relations Manager Relationship Specialty Start Date End Date Tricia Bearden MD [address] [phone] PCP - General Internal Medicine 03/16/25
--- OUTSIDE RECORDS SUMMARY | 2025-05-03 17:41 | XMS_ITS | Encounter Summary ---
Author Organization [employer] Address [address] [facility] 7 [place] [address] Care Team Providers Care Winderman Name Role Phone Tricia Bearden MD Primary Care Provider + Nestor Mares RN Unavailable Tamy Abebe Unavailable Encounter Details Date Type Department Care Team (Late st Contact Info) Description 07/08/2022 Orders Only [facility] [address] [place] [address] Tish Finn MD [address] [place] [address] Bacterial vaginosis (Primary Dx) Social History Tobacco [...] Description 10/12/2025 1:45 PM EDT Office Visit [facility] [address] [place] [address] Eva Payne documented as of this encounter Visit Diagnoses Diagnosis Bacterial vaginosis- Primary Unspecified vaginitis and vulvovaginitis documented in this encounter Care Teams Winderman Relationship Specialty Start Date End Date Tricia Bearden MD [address] [place] [address] PCP - General Family Medicine 03/27/21 Nestor Mares, HIREN [address] [place] [address] Registered Nurse Family Medicine 12/14/24 Tamy Abebe 12/14/24 Rell Weston Phototypesetting Equipment MonitorAviation Electrical Technician 07/10/23 documented as of this encounter
--- OUTSIDE RECORDS SUMMARY | 2025-05-03 17:42 | XMS_ITS ---
Author Organization [employer] Address [address] [facility] 7 [place] [address] Care Team Providers Care Operator Control Room Name Role Phone Tricia Bearden MD Primary Care Provider + Nestor Mares RN Unavailable [phone] Tamy Abebe Unavailable CM Complex Status:Enrolled (Active) Start date:12/14/2024 Enrollment date:01/04/2025 Enrollment reason:Referred by provider Overview Provider Referral- Patient's PARTS COUNTER SALESPERSON left recently, patient and current caregiver do not have much information re patient's medical care as her previous PARTS COUNTER SALESPERSON used to take her to all appts, please reach out to them and give her info to fu on home care (she's out of home svc) (Please call Dr. Bearden for more information) Case Team Name Relationship Phone Nestor Mares RN(Responsible Staff) Registered [facility] [phone] Continued Care and Services Coordination
--- OUTSIDE RECORDS SUMMARY | 2025-05-03 17:42 | XMS_ITS ---
Author Organization [employer] Address 75 [facility] 7 [place] [address] Care Team Providers Care Horse Show Manager Name Role Phone Tricia Bearden MD Primary Care Provider + Nestor Mares RN Unavailable [phone] Tamy Abebe Unavailable [facility] Complex Status:Enrolled (Active) Start date:12/14/2024 Enrollment date:12/14/2024 Enrollment reason:Referred by provider Overview Provider Referral- Patient's ELEVATOR CONSTRUCTOR HYDRAULIC left recently, patient and current caregiver do not have much information re patient's medical care as her previous ELEVATOR CONSTRUCTOR HYDRAULIC used to take her to all appts, please reach out to them and give her info to fu on home care (she's out of home svc) (Please call Dr. Bearden for more information) Case Team Name Relationship Phone Tamy Abebe(Responsible Staff) [phone] Continued Care and Services Coordination
--- OUTSIDE RECORDS SUMMARY | 2025-05-03 17:42 | XMS_ITS | Encounter Summary ---
Author Organization [employer] Address 75 [facility] 7 [place] [address] Care Team Providers Care Log Deckman Name Role Phone Tricia Bearden MD Primary Care Provider + Nestor Mares RN Unavailable Tamy Abebe Unavailable Encounter Details Date Type Department Care Team (Late st Contact Info) Description 07/28/2023 Telephone [facility] [address] [place] [address] Trciia Bearden MD [address] [place] [address] Social History Tobacco Use Types Packs/Day Years [...] Description 10/12/2025 1:45 PM EDT Office Visit [facility] [address] [place] [address] Eva Payne documented as of this encounter Visit Diagnoses Not on filedocumented in this encounter Care Teams Log Deckman Relationship Specialty Start Date End Date Tricia Bearden MD [address] [place] [address] PCP - General Family Medicine 03/27/21 Nestor Mares, RN [address] [place] [address] Registered Nurse Family Medicine 12/14/24 Tamy Abebe 12/14/24 Rell Weston Land Law ExaminerTax Accounting Assistant 07/10/23 documented as of this encounter
[2025-05-03 22:31] LABS: Bacterial Vaginosis PCR NEGATIVE (Negative); Candida Group PCR NOT DETECTED (Not Detect); Candida glab krusei PCR NOT DETECTED (Not Detect); Trichomonas vaginalis PCR NOT DETECTED (Not Detect)
== END 2025-05-03 17:38 | disposition home or self-care (01) ==
LOC: HO.LNP 17:37
PROVIDERS: Visit Provider Advanced Practice Midwife
DX: N89.8 Other specified noninflammatory disorders of vagina (principal)
CPT/HCPCS: 81515